=== PATIENT | female | born 1980 | race Caucasian/White ===

== ENCOUNTER 2018-12-28 22:32 | Inpatient (IN) ==
[2018-12-29] MEDS: PROTONIX IV SCH (01:14)
[2018-12-29] MEDS: DEMEROL IV PRN ×2 (01:14→06:38)
[2018-12-29] MEDS: SODIUM CHLORIDE 0.9% INJ SCH (01:14)
[2018-12-29 02:13] LABS: AGAP 18; ALB/GLOB RATIO 0.7; ALBUMIN 2.6 g/dL (3.5-5.0); ALKALINE PHOSPHATASE 138 U/L (32-104); BUN 10 mg/dL (8-22); CALCIUM 9.1 mg/dL (8.8-10.2); CHLORIDE 93 mmol/L (98-107); COSMO 261; CREATININE 0.7 mg/dL (0.5-0.9); ESTIMATED GFR > 60; GLUCOSE 119 mg/dL (70-104); GOT 31 U/L (10-30); GPT 17 U/L (10-36); MAGNESIUM 1.7 mg/dL (1.5-2.7); POTASSIUM 3.8 mmol/L (3.5-5.1); SODIUM 130 mmol/L (136-145); TCO2 19 mmol/L (25-35); TOTAL BILIRUBIN 0.56 mg/dL (0.20-1.00); TOTAL PROTEIN 6.3 g/dL (6.3-8.3)
[2018-12-29 02:24] LABS: INR 1.12; PROTIME 15.3 Seconds (11.0-16.0)
[2018-12-29 02:25] LABS: BASO# 0.02 X1000 (0.0-0.2); BASO% 0.1 % (0.0-0.8); EOS# 0.05 X1000 (0.0-0.7); EOS% 0.2 % (0.0-10.0); HEMATOCRIT 34.3 % (37.0-47.0); IMM GRAN# 0.12 X1000 (0.0-0.04); IMM GRAN% 0.5 % (0.0-0.5); LYMPH# 1.58 X1000 (1.2-3.4); LYMPH% 6.4 % (20.5-51.1); MCHC 32.1 g/dL (33-37); MCV 81.1 FL (81-99); MONO# 1.68 X1000 (0.11-0.59); MONO% 6.8 % (1.7-9.3); MPV 9.4 FL (7.4-10.4); NEUT# 21.34 X1000 (1.4-6.5); PLT 316 X1000 (130-400); RBC 4.23 XMIL (4.2-5.4); RDW 15.1 % (11.5-14.5); WBC 24.79 X1000 (4.8-10.8)
[2018-12-29 02:59] LABS: LYMPHS 7 % (21-51); MONO 6 % (1-9); SEGS 87 % (42-75)
[2018-12-29 03:38] LABS: BILIRUBIN URINE NEGATIVE (NEGATIVE); BLOOD URINE MODERATE (NEGATIVE); COLOR YELLOW; GLUCOSE URINE NEGATIVE (NEGATIVE); KETONE URINE 40 mg/dL (NEGATIVE); LEUKOCYTES URINE LARGE (NEGATIVE); NITRITE URINE NEGATIVE (NEGATIVE); PH URINE 6.5; PROTEIN URINE 30 mg/dL (NEGATIVE); SP GRAVITY URINE 1.025; TURBIDITY URINE HAZY (CLEAR); URINE SOURCE CLEAN CATCH; UROBILINOGEN URINE NORMAL (NORMAL)
[2018-12-29 03:40] LABS: UR EPITHELIAL CELLS <10 /HPF (<10); URINE BACTERIA NEGATIVE /HPF; URINE WBC TNTC /HPF (<10)
[2018-12-29] MEDS: ZOSYN 3.375 GM in NS 50 ML IV SCH ×4 (04:15→19:39)
[2018-12-29] MEDS: NS 1,000 ML IV SCH ×3 (04:15→20:26)
[2018-12-29] MEDS ORDERED: OFIRMEV 1000 MG/ISOTONIC SOLN 1,000 MG/100 ML BOTTLE IV ONE (04:55)
--- NOTE | 2018-12-29 06:36 | Diag Imaging Result Doc PS360 ---
CT ABD/PELVIS W/IV CONT ONLY - 12/29/2018 INDICATION: Buttock abscess,r/o perirectal abscess COMPARISON: None FINDINGS: There is a large subcutaneous rim-enhancing gas and fluid collection centered at the superficial tissue at the intragluteal crease mainly on the left side. This does not appear to extend above the pelvic diaphragm. In maximum dimension this measures 11 x 10 cm. The lung bases are clear and the heart size is normal. There is mild fatty change of the liver. There are a couple of nonobstructing stones in the upper pole of the right kidney measuring about 4 mm. No hydronephrosis or hydroureter. 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 There are peripelvic cysts of the lower pole of the right kidney. Urinary bladder, uterus, and rectum are normal. No bowel obstruction or inflammation. Bony structures are intact. IMPRESSION: 1. Large subcutaneous abscess at the inferior intergluteal crease. This does not extend above the pelvic diaphragm. 2. Nonobstructing right renal stones. 3. Mild fatty change of the liver. This exam was performed using automated exposure control, adjustment of mA or kV according to patient size, and/or use of iterative reconstruction technique Electronically signed by Hernan Glover 12/29/2018 6:35 AM
--- NOTE | 2018-12-29 07:30 | EKG Report ---
Test Performed on : 12/29/2018 01:40:20 AM Test Reason : Hypokalemia, Surgical Patient Blood Pressure : / mmHG Vent. Rate : 110 BPM Atrial Rate : 110 BPM P-R Int : 122 ms QRS Dur : 098 ms QT Int : 308 ms P-R-T Axes : 047 052 101 degrees QTc Int : 416 ms Sinus tachycardia. Lateral infarct (cited on or before 11-FEB-2018) Possible Inferior infarct , old Abnormal ECG When compared with ECG of 11-FEB-2018 08:59, Nonspecific T wave abnormality now evident in Inferior leads Nonspecific T wave abnormality now evident in Lateral leads Confirmed by Berenice LEVY, Manuel Fallon ([id number]) on 12/29/2018 1:39:23 PM
--- NOTE | 2018-12-29 07:44 | HISTORY AND PHYSICAL ---
PRIMARY CARE PROVIDER: Dr. Ric Butterfield. CHIEF COMPLAINT: Possible abscess. HISTORY OF PRESENT ILLNESS: Ms. Osullivan is a 38-year-old female who was transferred to our facility from [facility]. She states that for a few days now, she had been having low back, buttock type pain. She states that she did present to the urgent care in [place] and was diagnosed with lower back pain. They did prescribe her a muscle relaxer and an NSAID. The patient states the pain did continue. She states that approximately 1 to 1-1/2 days ago that she had development of an abscess on her left buttock. She states this has continued to worsen. She also reports that she has been having fever, body aches, chills and nausea. She is also reporting some urinary frequency and a headache. The patient states that she does have a history of migraines and it is not uncommon for her to have headaches and these are similar to her previous headaches. The patient also states that she has felt a pressure type pain like she may have a bowel movement although she will not. She has reported some hematochezia though she does have a history of hemorrhoids. At [facility], the patient was noted to have leukocytosis and according to their laboratory results, she did have a white blood cell count of 32,500. She was also noted on her chemistries to have a potassium of 2.8. Given her reported symptoms and examination findings of a large left buttock abscess, they did diagnose her with a perirectal abscess. They did give 1 dose of IV Ancef for antibiotic coverage. She did receive a 1 L of normal saline bolus and pain medication of Demerol and 1 gram of Tylenol p.o. The ER physician there, Dr. Claudio did speak with Dr. Cotto a surgeon at [facility] and Dr. Cotto has accept the patient. She was transferred to [facility] for admission. Upon my examination, the patient was resting in the inpatient bed. She was in no acute distress. She was alert and oriented x4. Should mention she is complaining of pain at this time in her left buttock area. Upon examination, the patient did have what appears to be a large left buttock abscess though she does not have any draining or area of fluctuance noted at this time. The area does have erythema and is warm to the touch. The patient did report a lot of tenderness upon palpation. Laboratory results here did reveal a white blood cell count of 24,790 though her potassium level was 3.8. Lactate was 1.1. Urinalysis did show moderate blood, large leukocytes and too numerous to count white blood cells. CT abdomen and pelvis with IV contrast did show a large left perianal and gluteal abscess. The patient has been placed in inpatient admission to the surgical floor. REVIEW OF SYSTEMS: A 14 point review of systems was conducted with the patient and all were negative except for pertinent positives mentioned in above HPI. PAST MEDICAL HISTORY: 1. Hypertension. 2. Thyroid disease. 3. Gastroesophageal reflux disease. 4. Anemia. PAST SURGICAL HISTORY: 1. x3. 2. Tubal ligation. 3. Laparoscopic supracervical hysterectomy with left salpingectomy. SOCIAL HISTORY: The patient denies any tobacco, alcohol or illicit drug use. FAMILY HISTORY: Positive for her mother having a history of hypertension. She did pass away secondary to a brain aneurysm. Her father has a history of heart disease. ALLERGIES: Patient has an allergy to codeine stating it causes her to have itching. HOME MEDICATIONS: 1. Lotensin 40 mg p.o. daily. 2. Coreg 12.5 mg p.o. b.i.d. 3. Cyclobenzaprine 10 mg p.o. p.r.n. for muscle spasms. 4. Hydrochlorothiazide 25 mg p.o. daily. 5. Motrin 800 mg p.o. q.8 hours p.r.n. 6. Prevacid 30 mg p.o. b.i.d. 7. Claritin 10 mg p.o. daily. 8. Meloxicam 15 mg p.o. daily. 9. Tapazole 5 mg p.o. daily. 10.Singulair 10 mg p.o. daily. 11.Centrum multivitamin 1 p.o. daily. DIAGNOSTIC DATA/LABORATORY RESULTS: White blood cell count is 24,790, hemoglobin 11, hematocrit 34.3, platelet count is 316,000. PT is 15.3, INR 1.12. Sodium 130, potassium 3.8, chloride 93, serum bicarb is 19. BUN 10, creatinine 0.8 with a glucose of 119. Calcium 9.1. Magnesium 1.7. Liver function tests were within normal limits except for AST 31 and alkaline phosphatase 138. Plasma lactate 1.1. TSH 0.48. Urinalysis obtained via clean catch was positive for protein, ketones, moderate blood, leukocytes and too numerous to count white blood cells though was negative for nitrites, glucose or bacteria. EKG showed sinus tachycardia at a rate of 110 with a QTc of 416. CT abdomen and pelvis with IV contrast does show a large left perianal and gluteal abscess. There were other non acute findings. Please see CT report for CT findings. PHYSICAL EXAMINATION: VITAL SIGNS: Temperature 98.8 degrees, heart rate 110, respirations 20, blood pressure is 125/69, oxygen saturation is 100% room air. GENERAL: Ms. Osullivan is a very pleasant 38-year-old female who was resting in the inpatient bed. She was in no acute distress. She was awake, alert and able to answer all questions appropriately. HEENT: Head is atraumatic, normocephalic. Pupils are equal, round and reactive to light, 3 mm bilaterally and brisk. Oral mucosa is moist. Oropharynx is clear. NECK: Supple. Trachea midline. CARDIOVASCULAR: Patient has normal S1, S2. No murmurs, gallops, rubs appreciated with a slightly tachycardic rate and a regular rhythm. PULMONARY: Patient has symmetrical chest expansion bilaterally. Lung sounds were clear to auscultation in bilateral full oliva. ABDOMEN: Soft. Does not appear to be distended though the patient does have a protuberant abdomen noted. It is nontender upon palpation. Bowel sounds are present in all 4 quadrants. EXTREMITIES: No cyanosis, clubbing or edema noted. Pulse, motor and sensory are intact in all extremities. Radial pulses and pedal pulses are 2+ bilaterally. GENITOURINARY: The patient does have a large left buttock abscess though there does not appear to be any area of drainage or fluctuance noted at this time. This area was very tender to touch or with palpation. There is erythema and warmth noted. INTEGUMENTARY: The patient's skin is pink, warm and dry. Please see above genitourinary exam for left buttock abscess description. NEUROLOGICAL: The patient is alert, oriented x4. She is able to move all 4 extremities. There does not appear to be any focal neurological deficits noted at this time. ASSESSMENT AND PLAN: 1. Large left perianal and gluteal abscess. For this, we have placed a consult with Dr. Cotto for possible surgical drainage. We will await his evaluation and further recommendations for management. Given this, we have placed her NPO until evaluated by Surgery. We will provide antibiotic coverage with Zosyn. Blood cultures have been obtained. She reported that Demerol did control her pain well. We will continue this at this time as well as provide general fluid hydration with normal saline at 100 mL per hour. The patient did previously receive a 1 L normal saline bolus in the ER at [facility]. We will continue to follow closely. 2. Leukocytosis. This is likely secondarily related to her perianal and gluteal abscess though the patient has been reporting urinary frequency and does have large leukocytes noted in her urinalysis. We will continue with the above mentioned antibiotic of Zosyn and blood cultures and urine culture. 3. Hypertension. We will continue her Coreg 12.5 mg p.o. b.i.d. 4. Thyroid disease. We will continue her Tapazole. 5. Gastroesophageal reflux disease. We have placed Protonix 40 mg IV q.24 hours. 6. DVT prophylaxis will be provided with SCDs. We will hold any anticoagulants given that she is likely a surgical patient. She has been placed on the medical floor telemetry. She will have vital signs q.4 hours. We will do strict intake and output. Further orders and recommendations pending hospital course, diagnostic studies and physician evaluation. Dictated by CARMENCITA Barnett for Rk Shi MD cc: Rk Shi MD
[2018-12-29] MEDS: CLARITIN PO SCH (08:25)
[2018-12-29] MEDS: SINGULAIR PO SCH (08:25)
[2018-12-29] MEDS: TAPAZOLE PO SCH (08:25)
[2018-12-29] MEDS ORDERED: DILAUDID IV ONE (08:39)
[2018-12-29] MEDS ORDERED: COREG PO SCH (09:00)
--- NOTE | 2018-12-29 10:22 | PROGRESS NOTE ---
DATE: 12/29/2018 INTERVAL HISTORY: Ms. Osullivan was admitted for sepsis due to left gluteal/ perianal abscess, hyponatremia, hypochloremia, low bicarbonate, from [facility]. She is about to go for incision and drainage by the surgical team. SUBJECTIVE: The patient is complaining of excruciating pain in the left perianal region . She states she just had a big urine output right after her CAT scan was taken. We discussed about her sepsis finding, antibiotic plan, and surgical plan. I answered all of her questions. Plan of care was discussed with the patient's who is the surrogate decision maker. OBJECTIVE: Vital Signs: Temperature 99.7 degrees, pulse 117 per minute, blood pressure 100/53, saturating 96% on room air. Physical Examination: General: The patient appears in [id number] distress because of pain. HEENT: Oral cavity has poor dentition and appears dry. Respiratory: Air entry bilaterally equal. No wheeze, rhonchi, or crackles. Cardiovascular: S1, S2. Tachycardic. No murmur, rub, or gallop. Abdomen: Obese, soft, nontender. No hepatosplenomegaly. Bowel sounds are active. Extremities: No lower extremity edema. Gluteal examination reveals warm, erythematous, indurated area affecting the left buttock starting from anal orifice and extending on the lower aspect of the left buttock. There is no opening or active drainage. Microbiology: Blood culture, urine culture, and lab. Report: CT scan finding has suggested gluteal abscess in the subcutaneous region. ASSESSMENT AND PLAN: 1. Sepsis due to left perianal/gluteal abscess. Continue intravenous fluid resuscitation. Give boluses as needed. Continue intravenous Zosyn. She does not have risk factors for methicillin-resistant Staphylococcus aureus. Follow up with blood culture results. Surgery has been consulted and patient is about to go for incision and drainage. Follow up final culture results and modify antibiotics accordingly. 2. Fever, leukocytosis, and tachycardia, likely in the setting of sepsis. Follow up cardiac and respiratory status closely. 3. Pyuria with history of increased frequency of urination. Follow up with final urine culture results. Continue Zosyn for now. 4. Thyroid disease. The patient could not provide detailed history about hypo versus hyperthyroidism. It is listed that she is taking methimazole. I will follow up with TSH and free T4. 5. History of essential hypertension. Continue to hold antihypertensive medication for now. The patient's antihypertensive medication was also started recently because of her high heart rate, as per the history given by the patient. 6. Hyponatremia, hypochloremia, and low bicarbonate, likely in the setting of sepsis. Continue intravenous fluids and follow up with BMP. Depending on her course, I will have Valdez catheter for close input and output monitoring. 7. Gastroesophageal reflux disease. Continue Protonix. 8. Deep venous thrombosis prophylaxis. Continue sequential compression devices. I will add enoxaparin after surgery. 9. Disposition. The patient remains inside the hospital for sepsis from a gluteal abscess. Plan of care was discussed with the patient and her at bedside. All of their questions have been answered. cc: Amrit Jansen MD MTDD
[2018-12-29] MEDS: TYLENOL PO PRN ×3 (10:44→23:09)
[2018-12-29] MEDS: DILAUDID IV PRN ×3 (11:10→17:09)
[2018-12-29] MEDS: ZOFRAN IV PRN ×2 (11:11→17:08)
[2018-12-29] MEDS ORDERED: LOVENOX SUBQ SCH (11:45)
[2018-12-29] MEDS ORDERED: DIPRIVAN 1% ONE (14:39)
[2018-12-29] MEDS ORDERED: XYLOCAINE-MPF 2% ONE (14:39)
[2018-12-29] MEDS ORDERED: VERSED ONE (14:39)
[2018-12-29] MEDS ORDERED: QUELICIN (DOSE) ONE (14:39)
[2018-12-29] MEDS ORDERED: FENTANYL ONE (14:39)
[2018-12-29] MEDS ORDERED: PEPCID ONE (15:03)
[2018-12-29] MEDS ORDERED: ZOFRAN ONE (15:06)
[2018-12-29] MEDS ORDERED: PHENERGAN ONE (16:23)
[2018-12-29] MEDS ORDERED: DEMEROL ONE (16:24)
--- NOTE | 2018-12-29 17:21 | OPERATIVE NOTE ---
PROCEDURE DATE: 12/29/2018 PREOPERATIVE DIAGNOSIS: Perirectal abscess. POSTOPERATIVE DIAGNOSIS: Perirectal abscess. PRINCIPAL PROCEDURE: Incision and drainage of a large left-sided perirectal abscess. SURGEON: Silva Cotto MD. ANESTHESIA: General. ESTIMATED BLOOD LOSS: 50 mL. DRAINS: None. INDICATIONS: Ms. Ruma Osullivan is a 38-year-old, overweight, white female who for the last 3 days has been having increasing swelling and pain left buttock where she could not even sit down. She presented to [facility] Emergency Department last night. She was transferred to [facility] for surgical treatment. FINDINGS: She had a large perirectal abscess left side of the rectum within the soft tissue. We drained it completely and packed it open with iodoform gauze. DESCRIPTION OF PROCEDURE: The patient was brought to the operating room, placed supine, received general anesthesia, was intubated, and then she was placed in the prone position. Her buttocks were prepped and draped within a sterile field. She had a large perirectal abscess involving the medial aspect of her left buttock. I made a transverse incision in the area of most fluctuance with a 15 blade scalpel and began draining this perirectal abscess. It at least 500-750 mL of pus within it. Cultures were taken. We removed all the purulence using suction and we took time to thoroughly irrigate out the abscess cavity. We then packed it open with 1 inch iodoform gauze, followed by dry dressings. She tolerated the procedure well with plans for her to go the recovery room and then be readmitted to the floor. cc: Silva Cotto MD
[2018-12-29] MEDS ORDERED: LEVOPHED 8 MG in D5 1/2 NS 250 ML IV SCH (18:00)
--- NOTE | 2018-12-29 18:11 | PROGRESS NOTE ---
DATE: 12/29/2018 ADDENDUM: I was informed that Ms. Osullivan blood pressure had dropped, and it was 60s over 30s. She kept on having repeated fever spikes, which was not improving. I went to bedside and evaluated the patient again. She is feeling very sleepy. She complains of some pain at the surgical site. Apparently, she underwent incision and drainage of her large perianal abscess with removal of about 500 mL of purulent fluid. She denies any chest pain or shortness of breath. I had ordered an additional L of bolus, but considering her critically low blood pressure I would transfer her to ICU for septic shock. Continue current antibiotic regimen, and we will start her on norepinephrine drip to maintain more than 65 mmHg of map. More than 30 minutes of critical care time was spent in taking care of this patient. Plan of care was discussed with her at length. I called lori'ts who was not at the bedside in the evening. However, his voice mail is not set up. I called patient's mother and it went to her voicmail. I have left a message to call us back so that we could update them about patient's ICU transfer. cc: Amrit Jansen MD MTDD
[2018-12-29] MEDS ORDERED: VANCOMYCIN IV PER PHARMACY MISC SCH (18:15)
[2018-12-29] MEDS ORDERED: VANCOMYCIN 2 GM in NS 500 ML IV SCH (20:00)
[2018-12-29] MEDS ORDERED: NS 500 ML IV ONE (20:12)
[2018-12-29] MEDS: MYLICON PO PRN (20:26)
[2018-12-30] MEDS: SODIUM CHLORIDE 0.9% INJ SCH (01:08)
[2018-12-30] MEDS: PROTONIX IV SCH (01:08)
[2018-12-30] MEDS: ZOSYN 3.375 GM in NS 50 ML IV SCH ×4 (02:59→20:17)
[2018-12-30 04:17] LABS: INR 1.23; PROTIME 16.5 Seconds (11.0-16.0)
[2018-12-30] MEDS: DILAUDID IV PRN (04:21)
[2018-12-30 04:25] LABS: ALB/GLOB RATIO 0.9; ALBUMIN 2.4 g/dL (3.5-5.0); CALCIUM 7.7 mg/dL (8.8-10.2); CREATININE 1.1 mg/dL (0.5-0.9); POTASSIUM 2.8 mmol/L (3.5-5.1); TOTAL BILIRUBIN 0.34 mg/dL (0.20-1.00); TOTAL PROTEIN 5.1 g/dL (6.3-8.3)
[2018-12-30 05:07] LABS: URINE SOURCE CATH
[2018-12-30 05:09] LABS: BILIRUBIN URINE NEGATIVE (NEGATIVE); BLOOD URINE SMALL (NEGATIVE); COLOR YELLOW; GLUCOSE URINE 70 mg/dL (NEGATIVE); KETONE URINE TRACE mg/dL (NEGATIVE); LEUKOCYTES URINE SMALL (NEGATIVE); NITRITE URINE NEGATIVE (NEGATIVE); PROTEIN URINE 70 mg/dL (NEGATIVE); SP GRAVITY URINE 1.022; TURBIDITY URINE HAZY (CLEAR); UROBILINOGEN URINE 3 mg/dL (NORMAL)
[2018-12-30 05:30] LABS: BASO# 0.02 X1000 (0.0-0.2); BASO% 0.1 % (0.0-0.8); EOS# 0.08 X1000 (0.0-0.7); EOS% 0.4 % (0.0-10.0); HEMOGLOBIN 8.7 g/dL (12.0-16.0); IMM GRAN# 0.09 X1000 (0.0-0.04); IMM GRAN% 0.5 % (0.0-0.5); LYMPH# 2.39 X1000 (1.2-3.4); LYMPH% 12.3 % (20.5-51.1); MCH 25.1 PG (27-31); MCV 83.6 FL (81-99); MONO# 1.66 X1000 (0.11-0.59); MONO% 8.5 % (1.7-9.3); MPV 9.7 FL (7.4-10.4); NEUT# 15.27 X1000 (1.4-6.5); NEUT% 78.2 % (42.2-75.2); PLT 299 X1000 (130-400); RBC 3.47 XMIL (4.2-5.4); RDW 15.5 % (11.5-14.5); WBC 19.51 X1000 (4.8-10.8)
[2018-12-30 05:53] LABS: UR EPITHELIAL CELLS <10 /HPF (<10); URINE BACTERIA NEGATIVE /HPF; URINE CASTS NONE SEEN; URINE CRYSTALS NONE SEEN; URINE RBC <10 /HPF (<10); URINE SMALL ROUND CELLS NONE SEEN; URINE WBC <10 /HPF (<10); URINE YEAST NONE SEEN
[2018-12-30] MEDS: NS 1,000 ML IV SCH (06:12)
--- NOTE | 2018-12-30 08:35 | Diag Imaging Result Doc PS360 ---
CHEST-PORTABLE - 12/30/2018 INDICATION: Abnormal chest x-ray COMPARISON: Earlier 12/30/2018 FINDINGS: There is clearly dextrocardia. The exact composition and reason is unclear. There is not enough detail from the abdomen CT to determine the situs of the heart. IMPRESSION: Dextrocardia with indeterminate situs. Recommend correlation with prior exams. A chest CT may be indicated. Electronically signed by Hernan Glover 12/30/2018 8:33 AM
--- NOTE | 2018-12-30 08:36 | Diag Imaging Result Doc PS360 ---
CHEST-1 VIEW - 12/30/2018 INDICATION: sepsis protocol COMPARISON: None FINDINGS: There is dextrocardia. No significant infiltrates throughout the lungs. There is some linear atelectasis midlungs bilaterally. IMPRESSION: Indeterminate dextrocardia. Bilateral linear atelectasis. Electronically signed by Hernan Glover 12/30/2018 8:34 AM
[2018-12-30] MEDS: ZYVOX 600 MG/D5W 600 MG/300 ML IVPB IV SCH ×2 (08:37→19:12)
[2018-12-30] MEDS: SINGULAIR PO SCH (08:46)
--- NOTE | 2018-12-30 08:48 | PROGRESS NOTE ---
DATE: 12/30/2018 SUBJECTIVE: As per the patient, she is feeling a little bit better today, but she is still on pressors. She has acute kidney injury, septic shock. Yesterday around 500 to 750 mL of pus had been drained from the perianal abscess. After that, the blood pressure started to drop to the 60s, and she was transferred to the intensive care unit for treatment. I will stop the vancomycin given to her acute kidney injury. I will continue with IV fluids, pressors, broad-spectrum antibiotics. Infectious Disease Department consulted. OBJECTIVE: Vital Signs: Temperature 98.3, pulse 20, blood pressure 109/53, oxygen saturation 95% on room air. HEENT: Head normocephalic. No trauma. PERRLA. Neck: Supple. No JVD. No masses. Central trachea. Chest: Clear to auscultation. No wheezing. No rales. Abdomen: Soft. Mild tenderness to palpation at the level of the periumbilical area and right flank. Positive bowel sounds. No signs of peritoneal irritation. Extremities: No edema. No clubbing. No cyanosis. Buttocks: Gluteal examination: This patient's gluteal area is covered by dressings. Neurological examination: Alert and oriented x3. No focal deficits. LABORATORY: WBC 19.5, hemoglobin 8.7, hematocrit 29.0, platelets 299. Sodium 137, potassium 2.8, chloride 103 bicarbonate 22. BUN 20, creatinine 1.1, glucose 113, calcium 7.7, albumin 2.4. ASSESSMENT AND PLAN: 1. Septic shock, due to left perianal abscess. I will continue with intravenous fluids, broad- spectrum antibiotics. I will stop the vancomycin due to her acute kidney injury, and I will put this patient on Zyvox. I will consult Infectious Disease Department. Continue with pressors as well. 2. Fever, leukocytosis, likely secondary to the infectious process/sepsis. Continue to monitor with telemetry. 3. Possible urinary tract infection. We will follow up with final urine culture, but for now we will continue with antibiotics. 4. Possible thyroid disease. Thyroid stimulating hormone is normal. She is not sure if she has a history of hypo or hyperthyroidism. 5. History of hypertension. No blood pressure medication for now due to her hypotension. 6. Hyponatremia. Resolved. 7. Hypokalemia. I will replace the potassium. 8. Acute kidney injury likely secondary to septic shock/hypotension. We will continue with intravenous fluids and pressors. Hopefully, this will get better. 9. Deep vein thrombosis prophylaxis. I will stop right now the Lovenox because her PT and PTT are elevated. I will ask for more lab work to rule out disseminated intravascular coagulation. 10. Possible disseminated intravascular coagulation. I will ask for more lab work to rule it out. PT, PTT slightly elevated. Once this is better, I will continue with subcutaneous heparin. 11. Disposition: We will continue with this patient in the intensive care unit. She is getting pressors, broad-spectrum antibiotics and intravenous fluids. She is in septic shock. Infectious Disease Department has been consulted. CRITICAL CARE TIME: 35 minutes. cc: Miguel Sun MD
[2018-12-30] MEDS: CLARITIN PO SCH (08:57)
[2018-12-30] MEDS: KLOR-CON PO SCH ×2 (08:57→20:17)
[2018-12-30] MEDS: TAPAZOLE PO SCH (09:35)
[2018-12-30] MEDS: MYLICON PO PRN ×3 (09:36→19:12)
--- NOTE | 2018-12-30 09:52 | INFECTIOUS DISEASE CONSULT REP ---
DATE: 12/30/2018 CONCLUSION: I was asked see the patient because of sepsis. The patient, I think, was septic because of her perirectal abscess but since it has been drained and since she has been started on antibiotics, her condition has improved quite a bit. Her urinalysis shows she has white cells but no bacteria and the white cells in the urine probably occurred from the urinary tract being near the perirectal abscess. RECOMMENDATIONS: I agree with treating the patient with Zosyn and Zyvox pending culture results. DISCUSSION: The patient developed a large perirectal abscess. She developed a septic-like condition. The abscess has been drained by Dr. Cotto. Since the drainage, the patient's condition has improved quite a bit. Her CBC shows the white count went from 24,790 to 19,510, hemoglobin 8.7, and platelet count 299,000. Creatinine increased a little bit to 1.1 and the GFR decreased a little bit to 56. Liver function studies are normal. Urine culture is negative. Blood cultures are pending. The abscess culture is pending also. The Gram stain from the abscess shows gram-positive cocci and gram-negative rods. GEEK SQUAD MANAGER HISTORY: The patient is a 3, para 3, AB 0. She delivered all of her children by section. She has had a hysterectomy. PREVIOUS HOSPITALIZATIONS AND OPERATIONS: She has had 3 sections and a hysterectomy. MEDICAL DISEASES: Positive for obesity, hypertension, hypothyroidism, and at one time, her cholesterol was elevated but she states it is not elevated now and she is not on medication for cholesterol. INFECTIOUS DISEASE HISTORY: Positive for urinary tract infection. FAMILY HISTORY: Positive for diabetes mellitus, hypertension, myocardial infarction, stroke, and cancer. SOCIAL HISTORY[place] . She has a cat and fish for pets. She is a homemaker. ALLERGIES: She is allergic to [place]. HABITS: She does not smoke cigarettes, drink alcoholic beverages, or abuse drugs. HOME MEDICATIONS: Include the following: Lotensin, Coreg, cyclobenzaprine, hydrochlorothiazide, Motrin, Prevacid, Claritin, meloxicam, Tapazole, montelukast, and multivitamins. PHYSICAL EXAMINATION: Vital Signs: Temperature is 97.6 degrees, pulse 92, respirations 19, blood pressure 115/61. General: This is an obese but otherwise healthy-appearing young female. She is in no acute distress. Head, Eyes, Ears, Nose, and Throat: She can hear my spoken words and see near objects. There is no drainage from the nose or the ears. Neck: No meningismus. Lungs: Clear to auscultation. Cardiovascular: Heart rate is regular. Abdomen: Soft and nontender. Neurologic: The patient is alert. She can move her extremities. There is no tremor. Her sensation is intact to touch. Her memory as regarding her medical history is intact. Thank you for the consult. cc: Clarence Duarte MD
[2018-12-30] MEDS: TYLENOL PO PRN ×2 (11:10→19:20)
[2018-12-30] MEDS ORDERED: BLISTEX MEDICATED BERRY LIP BALM TOP PRN (23:22)
[2018-12-30] MEDS ORDERED: NS 1,000 ML IV SCH (23:45)
[2018-12-31] MEDS: PROTONIX IV SCH (00:08)
[2018-12-31] MEDS: ZOSYN 3.375 GM in NS 50 ML IV SCH ×2 (01:43→07:56)
[2018-12-31] MEDS: TYLENOL PO PRN ×2 (01:44→21:49)
[2018-12-31 07:01] LABS: BASO# 0.02 X1000 (0.0-0.2); BASO% 0.2 % (0.0-0.8); EOS# 0.09 X1000 (0.0-0.7); EOS% 0.9 % (0.0-10.0); HEMATOCRIT 28.4 % (37.0-47.0); HEMOGLOBIN 8.6 g/dL (12.0-16.0); IMM GRAN# 0.04 X1000 (0.0-0.04); IMM GRAN% 0.4 % (0.0-0.5); LYMPH# 1.75 X1000 (1.2-3.4); LYMPH% 18.3 % (20.5-51.1); MCH 25.5 PG (27-31); MCHC 30.3 g/dL (33-37); MCV 84.3 FL (81-99); MONO# 0.83 X1000 (0.11-0.59); MONO% 8.7 % (1.7-9.3); NEUT# 6.83 X1000 (1.4-6.5); NEUT% 71.5 % (42.2-75.2); PLT 321 X1000 (130-400); RBC 3.37 XMIL (4.2-5.4); RDW 15.5 % (11.5-14.5); WBC 9.56 X1000 (4.8-10.8)
[2018-12-31 07:15] LABS: PTT 34.2 Seconds (22.3-41.8)
[2018-12-31 07:39] LABS: ALBUMIN 2.4 g/dL (3.5-5.0); CREATININE 2.2 mg/dL (0.5-0.9); INR 1.15; MAGNESIUM 2.1 mg/dL (1.5-2.7); PROTIME 15.6 Seconds (11.0-16.0); TOTAL BILIRUBIN 0.27 mg/dL (0.20-1.00); TOTAL PROTEIN 4.7 g/dL (6.3-8.3)
[2018-12-31] MEDS: 1/2 NS 1,000 ML IV SCH ×2 (07:55→19:30)
--- NOTE | 2018-12-31 08:22 | PROGRESS NOTE ---
DATE: 12/31/2018 SUBJECTIVE: As per the patient, she is feeling much better. She is no longer on pressors since yesterday. Blood pressure has been stable. White blood cells normalized, as well as her PT, PTT, INR. Her BUN increased a little bit compared with yesterday, but creatinine basically doubled the amount, from 1.1 to 2.2, but her urine output is good, documented 3.2 liters in 24 hours. She is tolerating p.o. and she is not having symptoms. I will continue with the IV fluids. I believe the kidney function is going to get better. Potassium level is normal today. OBJECTIVE: Vital Signs: Temperature 98.1 degrees, pulse 84, respiratory rate 22, blood pressure 122/58, oxygen saturation 97% on 2 liters of nasal cannula. HEENT: Head normocephalic. No trauma. PERRLA. Neck: Supple. No JVD. No masses. Central trachea. Chest: Clear to auscultation. No wheezing. No rales. Abdomen: Soft. Mild tenderness to palpation at the level of the periumbilical area. Positive bowel sounds. No signs of peritoneal irritation. Extremities: No edema. No clubbing. No cyanosis. Buttocks: The patient's gluteal area is covered with dressings. Neurological: The patient is alert and oriented x3. No focal deficits. LABORATORY DATA: WBC 9.5, hemoglobin 8.6, hematocrit 28.4, platelets 221,000. Sodium 146, potassium 4, chloride 101, bicarbonate 23, BUN 22, creatinine 2.2, glucose 95, calcium 8, AST 15, ALT 12, alkaline phosphatase 122, albumin 2.4. ASSESSMENT AND PLAN: 1. Septic shock due to perianal abscess. We will continue with intravenous fluids, broad- spectrum antibiotics, but we will avoid nephrotoxic medications. Infectious Disease Department on board. She is no longer on pressors. The septic shock resolved. Blood pressure has been more stable. 2. Fever, leukocytosis, likely secondary to the infectious process/sepsis, resolved. 3. Possible urinary tract infection. Urine culture did not show any bacteria. 4. Possible thyroid disease. The thyroid stimulating hormone is normal. For now, we will monitor. 5. Acute kidney injury, likely secondary to septic shock/hypotension. We will continue with intravenous fluids. She is no longer on pressors, but the blood pressure has been stable, actually the kidney numbers are getting worse. BUN increased a little bit and creatinine doubled from 1.1 to 2.2, but the urine output is excellent, 3.2 liters, so for now we will monitor. I do believe this is going to get better. 6. Deep vein thrombosis prophylaxis. I will put this patient back on anticoagulation. For now, we will do heparin subcutaneously twice a day. 7. Mild hypernatremia. We will monitor. She will drink more water. 8. Hypokalemia, resolved. Overall, this patient seems to be better. BUN and creatinine increased compared with yesterday, but the urine output is better as well. We will monitor for now. I do believe that is going to recover. I think she can be transferred to the floor. We have a positive wound culture that showed gram-negative rods. We will continue with the same management. Infectious Disease Department is on board. cc: Miguel Sun MD
[2018-12-31] MEDS: ZYVOX 600 MG/D5W 600 MG/300 ML IVPB IV SCH (08:29)
[2018-12-31] MEDS: SINGULAIR PO SCH (08:30)
[2018-12-31] MEDS: TAPAZOLE PO SCH (08:30)
[2018-12-31] MEDS: CLARITIN PO SCH (08:30)
--- NOTE | 2018-12-31 08:31 | PROGRESS NOTE ---
DATE: 12/31/2018 SUBJECTIVE: Ms. Ruma Osullivan is a 38-year-old white female, who is now postop day 2 from drainage of a large perirectal abscess. She had to be hospitalized in the ICU after surgery because of hypotension. She remains on IV antibiotics and clinically she has improved over the last 48 hours. I removed her packing from her open wound that drained her perirectal abscess this morning. She needs to be allowed to get in a shower or tub to keep that area clean at least daily. She needs dressing changes or attention to this area per our nurses at least twice daily. I have written those orders. This wound has to heal by secondary intention. After each bowel movement, she needs to be allowed to shower or get in a tub. cc: Silva Cotto MD
--- NOTE | 2018-12-31 11:39 | INFECTIOUS DISEASE PROGRESS NO ---
DATE: 12/31/2018 PRESENT ILLNESS: Ms. Osullivan is being treated for an Escherichia coli that is growing from a left-sided perirectal abscess. She has had incision and drainage of the abscess by Dr. Cotto. MEDICATIONS: Today is day 2 of Zosyn 3.375 g IV every 6 hours and Zyvox 600 mg IV every 12 hours. PHYSICAL EXAMINATION: Vital Signs: Temperature is 97.8 degrees, pulse rate 98 , respiratory rate 22, blood pressure 138/73, O2 saturation 99% on room air. General: This is a morbidly obese, middle-aged female. She is lying in bed, currently in no acute distress. HEENT : Atraumatic, normocephalic. Oral mucous membranes are pink and moist. Conjunctivae are pale. Neck: Supple. Trachea is midline. Cardiovascular: Heart rate and rhythm are regular. Normal sinus rhythm on the monitor. Radial and pedal pulses are palpable bilaterally. Abdomen: Soft , obese, and nontender. Bowel sounds are active. Integumentary: Incision noted to the medial aspect of her left buttock, which is currently open to air. There is some brownish-red drainage noted on the pad under her. Otherwise, the skin is warm and dry. Neurologic: She is awake , alert, and oriented, and moving around in the bed independently. LAB AND X-RAY: WBC 9.56, hemoglobin 8.6, platelet count 321,000, creatinine 2.2 , GFR 25, AST 15, ALT 12, alkaline phosphatase 122. Wound culture has grown an E. Coli. No imaging reports today. ASSESSMENT AND PLAN: Ms. Osullivan is being treated for a large perirectal abscess , which is growing an E. Coli. She has had an acute kidney injury and is receiving intravenous fluids. For now we will go ahead and discontinue Zyvox, and continue Zosyn at a renally modified dose of 2.25gm IV every 6 hours. Her leukocytosis has now resolved. The patient states she is feeling much better today, and is being transferred to the fourth floor, out of the intensive care unit at this point. These plans have been discussed with and recommended by Dr. Duarte. COMORBIDITIES: The comorbidities for Ms. Osullivan include morbid obesity and acute kidney injury. Dictated by CARMENCITA Styles for Clarence Duarte MD This chart was documented by, CARMENCITA Styles and accurately reflects the services performed, treatment plan and medical decisions as attested by the providers signature Clarence Duarte MD. cc: Clarence Duarte MD [facility]
[2018-12-31] MEDS: ZOSYN 2.25 GM in NS 50 ML IV SCH ×2 (15:23→21:32)
[2018-12-31] MEDS: DILAUDID IV PRN (21:32)
[2019-01-01] MEDS: ZOSYN 2.25 GM in NS 50 ML IV SCH ×4 (02:28→21:23)
[2019-01-01] MEDS: PROTONIX IV SCH (02:29)
[2019-01-01] MEDS: TYLENOL PO PRN (04:26)
[2019-01-01 06:35] LABS: BASO# 0.02 X1000 (0.0-0.2); BASO% 0.3 % (0.0-0.8); EOS# 0.14 X1000 (0.0-0.7); EOS% 2.1 % (0.0-10.0); HEMATOCRIT 26.2 % (37.0-47.0); HEMOGLOBIN 7.6 g/dL (12.0-16.0); LYMPH# 1.64 X1000 (1.2-3.4); LYMPH% 24.8 % (20.5-51.1); MCH 24.6 PG (27-31); MCV 84.8 FL (81-99); MONO# 0.67 X1000 (0.11-0.59); MONO% 10.1 % (1.7-9.3); MPV 9.8 FL (7.4-10.4); NEUT# 4.14 X1000 (1.4-6.5); NEUT% 62.7 % (42.2-75.2); PLT 335 X1000 (130-400); RBC 3.09 XMIL (4.2-5.4); RDW 15.5 % (11.5-14.5); WBC 6.61 X1000 (4.8-10.8)
[2019-01-01 06:54] LABS: ALB/GLOB RATIO 0.8; ALBUMIN 2.5 g/dL (3.5-5.0); CALCIUM 8.6 mg/dL (8.8-10.2); CREATININE 1.5 mg/dL (0.5-0.9); PHOSPHORUS 4.4 mg/dL (2.7-4.5); POTASSIUM 2.9 mmol/L (3.5-5.1); TOTAL BILIRUBIN 0.2 mg/dL (0.20-1.00); TOTAL PROTEIN 5.6 g/dL (6.3-8.3)
[2019-01-01] MEDS: 1/2 NS 1,000 ML IV SCH ×2 (08:04→15:14)
[2019-01-01] MEDS: TAPAZOLE PO SCH (10:04)
[2019-01-01] MEDS: CLARITIN PO SCH (10:04)
[2019-01-01] MEDS: SINGULAIR PO SCH (10:04)
[2019-01-01] MEDS ORDERED: KLOR-CON PO ONE (10:24)
--- NOTE | 2019-01-01 14:48 | PROGRESS NOTE ---
DATE: 01/01/2019 SUBJECTIVE: This patient is feeling better. She has been having low-grade fever, especially yesterday. Wound culture showed Escherichia coli that is sensitive to the treatment. We will continue with the same management. OBJECTIVE: Vital Signs: Temperature 98.2 degrees, pulse 94, respiratory rate 20, blood pressure 148/89, oxygen saturation 100% on room air. HEENT: Head normocephalic. No trauma. PERRLA. Neck: Supple. No JVD. No masses. Central trachea. Chest: Clear to auscultation. No wheezing. No rales. Abdomen: Soft. Mild tenderness to palpation at the level of the periumbilical area. Positive bowel sounds. No signs of peritoneal irritation. Extremities: No edema. No clubbing. No cyanosis. Inguinal area, gluteal area is covered with a dressing. Neurological examination: The patient is alert and oriented x3. No focal deficits. LABORATORY: WBC 6.6, hemoglobin 7.6, hematocrit 26.2, platelets 335. Sodium 142, potassium 2.9, chloride 107, bicarbonate 22. BUN 18, creatinine is 1.5, glucose 96, calcium 8.6. AST 11. ALT 13. alkaline phosphatase 108, albumin 2.5. ASSESSMENT AND PLAN: 1. Septic shock due to perianal abscess. I will continue with intravenous antibiotics, broad spectrum. We will avoid nephrotoxic medication. Infectious Disease Department on board. She is no longer on pressors, resolved. 2. Fever/leukocytosis, likely secondary to infectious process of sepsis. This is getting better. She has been having low-grade fever, especially yesterday. Leukocyte count improved, 6.6 today. 3. Urinary tract infection. Urine culture did not show any bacteria. 4. Possible thyroid disease. The thyroid stimulating hormone is normal. For now, we will monitor. 5. Acute kidney injury likely secondary to septic shock/hypotension. We will continue with intravenous fluids. She is not on pressors. Blood pressure has been stable. The creatinine decreased from 2.2 to 1.5. Urine output stable. 6. Deep vein thrombosis prophylaxis. I have placed this patient back on heparin twice a day due to her kidney dysfunction. 7. Mild hypernatremia, resolved. 8. Hypokalemia. I will replace the potassium. cc: Miguel Sun MD
[2019-01-01] MEDS: HEPARIN SUBQ SCH (21:23)
[2019-01-02] MEDS: SODIUM CHLORIDE 0.9% INJ SCH (01:12)
[2019-01-02] MEDS: TYLENOL PO PRN ×3 (01:12→20:42)
[2019-01-02] MEDS: PROTONIX IV SCH (01:12)
[2019-01-02] MEDS: 1/2 NS 1,000 ML IV SCH (01:13)
[2019-01-02] MEDS ORDERED: TESSALON PO PRN (03:40)
[2019-01-02] MEDS: ZOSYN 2.25 GM in NS 50 ML IV SCH ×4 (04:40→20:42)
[2019-01-02 06:45] LABS: BASO# 0.02 X1000 (0.0-0.2); BASO% 0.3 % (0.0-0.8); EOS# 0.12 X1000 (0.0-0.7); HEMOGLOBIN 8.6 g/dL (12.0-16.0); LYMPH# 1.76 X1000 (1.2-3.4); LYMPH% 28.7 % (20.5-51.1); MCH 24.9 PG (27-31); MCHC 29.7 g/dL (33-37); MCV 84.1 FL (81-99); MONO# 0.61 X1000 (0.11-0.59); MPV 9.6 FL (7.4-10.4); NEUT# 3.62 X1000 (1.4-6.5); PLT 369 X1000 (130-400); RBC 3.45 XMIL (4.2-5.4); RDW 15.3 % (11.5-14.5); WBC 6.13 X1000 (4.8-10.8)
[2019-01-02 06:47] LABS: ALB/GLOB RATIO 0.9; ALBUMIN 2.8 g/dL (3.5-5.0); CALCIUM 8.9 mg/dL (8.8-10.2); CREATININE 1.3 mg/dL (0.5-0.9); MAGNESIUM 1.8 mg/dL (1.5-2.7); TOTAL BILIRUBIN 0.23 mg/dL (0.20-1.00)
[2019-01-02] MEDS: CLARITIN PO SCH (10:05)
[2019-01-02] MEDS: TAPAZOLE PO SCH (10:05)
[2019-01-02] MEDS: HEPARIN SUBQ SCH ×2 (10:06→20:42)
[2019-01-02] MEDS: SINGULAIR PO SCH (10:06)
[2019-01-02] MEDS: COREG PO SCH ×2 (11:58→20:42)
[2019-01-02] MEDS: KLOR-CON PO SCH ×2 (11:59→20:41)
--- NOTE | 2019-01-02 12:40 | PROGRESS NOTE ---
DATE: 01/02/2019 SUBJECTIVE: This patient is feeling better. Her kidney function is getting better as well. No fever. No chills. Blood pressure is slightly elevated and I will put this patient back on carvedilol. I will hold for now her benazepril and hydrochlorothiazide due to her acute kidney injury. OBJECTIVE: Vital Signs: Temperature 98 degrees, pulse 81, respiratory rate 12, blood pressure 149/85, oxygen saturation 99 on room air. HEENT: Head normocephalic. No trauma. PERRLA. Neck: Supple. No JVD. No masses. Central trachea. Chest: Clear to auscultation. No wheezing. No rales. Abdomen: Soft, nontender, nondistended. No hepatosplenomegaly. Positive bowel sounds. Extremities: No edema. No clubbing. No cyanosis. Inguinal area/gluteal area is covered with a dressing. Neurological: Alert and oriented x3. No focal deficits. LABORATORY: WBC 6.1, hemoglobin 8.6, hematocrit 29, platelets 369,000. Sodium 142, potassium 3, chloride 106, bicarbonate 21, BUN 13, creatinine 1.3, glucose 99, calcium 8.9, albumin 2.8. ASSESSMENT AND PLAN: 1. Septic shock due to perianal abscess. Continue with IV antibiotics, broad spectrum. We will continue avoiding nephrotoxic medication. Infectious Disease Department on board. She is no longer on pressors. She is on the medical floor. Continue with IV fluids. 2. Fevers/leukocytosis, secondary to the infectious process and sepsis, resolved. 3. Urinary tract infection. Apparently she has been having multiple urinary tract infections in the past, at least 4 last year. Urine culture has been negative during this hospitalization. 4. Acute kidney injury secondary to septic shock/hypotension. This is getting better. BUN and creatinine are trending down. Urine output stable. 5. Deep vein thrombosis prophylaxis. Continue with heparin twice a day. 6. Mild hypernatremia, resolved. 7. Hypokalemia. I will replace the potassium today again. cc: Miguel Sun MD
[2019-01-02] MEDS: ZOFRAN IV PRN (20:41)
[2019-01-03] MEDS: 1/2 NS 1,000 ML IV SCH ×3 (00:32→15:35)
[2019-01-03] MEDS: ZOSYN 2.25 GM in NS 50 ML IV SCH ×3 (02:24→15:36)
[2019-01-03] MEDS: PROTONIX IV SCH (02:25)
[2019-01-03 06:07] LABS: BASO# 0.02 X1000 (0.0-0.2); BASO% 0.3 % (0.0-0.8); EOS# 0.24 X1000 (0.0-0.7); EOS% 3.1 % (0.0-10.0); HEMATOCRIT 28.4 % (37.0-47.0); HEMOGLOBIN 8.7 g/dL (12.0-16.0); IMM GRAN# 0.02 X1000 (0.0-0.04); IMM GRAN% 0.3 % (0.0-0.5); LYMPH# 1.92 X1000 (1.2-3.4); LYMPH% 24.5 % (20.5-51.1); MCH 25.4 PG (27-31); MCHC 30.6 g/dL (33-37); MCV 82.8 FL (81-99); MONO# 0.58 X1000 (0.11-0.59); MONO% 7.4 % (1.7-9.3); MPV 9.3 FL (7.4-10.4); NEUT# 5.06 X1000 (1.4-6.5); NEUT% 64.4 % (42.2-75.2); PLT 403 X1000 (130-400); RBC 3.43 XMIL (4.2-5.4); WBC 7.84 X1000 (4.8-10.8)
[2019-01-03 06:44] LABS: ALB/GLOB RATIO 1.1; ALBUMIN 3.2 g/dL (3.5-5.0); CALCIUM 8.9 mg/dL (8.8-10.2); CREATININE 1.2 mg/dL (0.5-0.9); POTASSIUM 3.7 mmol/L (3.5-5.1); TOTAL BILIRUBIN 0.18 mg/dL (0.20-1.00); TOTAL PROTEIN 6.2 g/dL (6.3-8.3)
[2019-01-03] MEDS: SINGULAIR PO SCH (10:12)
[2019-01-03] MEDS: TAPAZOLE PO SCH (10:12)
[2019-01-03] MEDS: CLARITIN PO SCH (10:12)
[2019-01-03] MEDS: HEPARIN SUBQ SCH ×2 (10:12→21:34)
[2019-01-03] MEDS: COREG PO SCH ×2 (10:12→21:34)
[2019-01-03] MEDS: FLAGYL PO SCH (16:51)
[2019-01-03] MEDS: LEVAQUIN PO SCH (16:51)
--- NOTE | 2019-01-03 18:04 | PROGRESS NOTE ---
DATE: 01/03/2019 SUBJECTIVE: Patient is feeling better. No major complaints. OBJECTIVE: Vital Signs: Blood pressure is 143/84, heart rate 76, respiratory rate 16, temperature 98.6, 98% on room air. Cardiovascular: Regular rate and rhythm. Pulmonary: Bilateral breath sounds. Clear to auscultation. Gastrointestinal: Soft, nontender, nondistended. Bowel sounds are positive. LAB DATA: Her white count is down to 7, actually been stable for several days. Hemoglobin and hematocrit 8 and 28, platelets 403,000. Basic looked okay. Creatinine down to 1.2. PROBLEM LIST: 1. Perianal abscess with resolved septic shock. ID has switched her to p.o. Levaquin and Flagyl. She did have a culture for Prevotella oralis, presumably that is anaerobic and sensitive to Flagyl. E coli is sensitive to Levaquin based on cultures from the . 2. UTI, but no active culture this admission. 3. Acute kidney injury that is resolving with hydration. She seems to be stable. 4. Hypokalemia has also improved. DISPOSITION: I think she is still very weak, though, but I think she is probably close to going home. Plan is to discharge at the discretion of Dr. Cotto, Surgery and Dr. Duarte, ID. Hopefully in the next couple days. cc: Arthur Lorenzo MD
--- NOTE | 2019-01-03 18:43 | INFECTIOUS DISEASE PROGRESS NO ---
DATE: 01/03/2019 PRESENT ILLNESS: Ms. Osullivan has an Escherichia coli and Prevotella oralis growing from a perirectal abscess. She has had an incision and drainage by Dr. Cotto. She is complaining of vaginal candidiasis as well. MEDICATIONS: Today is day 5 of Zosyn, which she has had at 2.25 g every 6 hours IV due to her acute kidney injury. At this point, her kidney function is improving with a GFR of 50. PHYSICAL EXAMINATION: Vital Signs: Temperature 98.8, pulse rate 70 respiratory rate 18, blood pressure 156/100, O2 saturation 99% on room air. General: This is a morbidly obese, chronically ill-appearing, middle-aged female. She is lying in the bed, currently in no acute distress. HEENT: Atraumatic, normocephalic. Oral mucous membranes are pink and moist. Conjunctivae are pale. Neck: Supple. Trachea is midline. Cardiovascular: Heart rate and rhythm are regular. Normal sinus rhythm on the monitor. Pedal and radial pulses are +2 bilaterally. Respiratory: Lung sounds are clear to auscultation. Abdomen: Soft, obese, and nontender. Bowel sounds are active. Integumentary: There is an incision to the medial aspect of her left buttock, which is open to air, with a small amount from brownish red drainage noted on the pad. Integumentary: Skin is warm and dry. Neurologic: She is awake, alert, and oriented. She is able to ambulate without assistance. No focal deficits. LABORATORY AND X-RAY: Today, her white count is 7.84, hemoglobin 8.7, platelet count 403,000. Creatinine is 1.2. GFR is 50. Total bilirubin is 0.18, AST 14, ALT 20, alkaline phosphatase 108. Her rectal wound has grown an E coli and a Prevotella oralis. Urine and blood cultures have shown no growth. No imaging reports today. ASSESSMENT AND PLAN: Ms. Osullivan is being treated for a perirectal abscess, which has been drained by Dr. Cotto. She also had an acute kidney injury, which seems to be resolving. I have talked to her about drinking plenty of fluids. We will change the Zosyn to oral Levaquin 500mg daily and Flagyl 500mg every 8 hours. She is complaining of vaginal burning, so we will treat her for a presumed candidiasis with clotrimazole cream every HS. She has had multiple UTI' s recently, although there is not a current bacteria growing. We will check a renal ultrasound and get a bladder scan for postvoid residual once her Valdez catheter comes out. These plans have been discussed with and recommended by Dr. uDarte. COMORBIDITIES: Morbid obesity and acute kidney injury. Dictated by CARMENCITA Styles for Clarence Duarte MD This chart was documented by, CARMENCITA Styles and accurately reflects the services performed, treatment plan and medical decisions as attested by the providers signature Clarence Duarte MD. cc: Clarence Duarte MD [facility]ri[facility]
[2019-01-03] MEDS ORDERED: ZOSYN 3.375 GM in NS 50 ML IV SCH (21:00)
[2019-01-03] MEDS ORDERED: NON-FORMULARY BULK MED VAG SCH (21:00)
[2019-01-04] MEDS: 1/2 NS 1,000 ML IV SCH ×2 (00:54→04:49)
[2019-01-04] MEDS: PROTONIX IV SCH (04:47)
[2019-01-04] MEDS: FLAGYL PO SCH ×2 (04:47→09:33)
[2019-01-04] MEDS: SODIUM CHLORIDE 0.9% INJ SCH (04:48)
[2019-01-04 06:05] LABS: BASO# 0.01 X1000 (0.0-0.2); BASO% 0.2 % (0.0-0.8); EOS# 0.14 X1000 (0.0-0.7); EOS% 2.3 % (0.0-10.0); HEMATOCRIT 26.3 % (37.0-47.0); HEMOGLOBIN 7.9 g/dL (12.0-16.0); LYMPH# 1.69 X1000 (1.2-3.4); LYMPH% 27.4 % (20.5-51.1); MCH 25.3 PG (27-31); MCV 84.3 FL (81-99); MONO% 8.1 % (1.7-9.3); MPV 9.6 FL (7.4-10.4); NEUT# 3.83 X1000 (1.4-6.5); PLT 333 X1000 (130-400); RBC 3.12 XMIL (4.2-5.4); RDW 14.9 % (11.5-14.5); WBC 6.17 X1000 (4.8-10.8)
[2019-01-04 06:47] LABS: AGAP 15; BUN 8 mg/dL (8-22); CALCIUM 8.6 mg/dL (8.8-10.2); CHLORIDE 106 mmol/L (98-107); COSMO 281; ESTIMATED GFR > 60; GLUCOSE 95 mg/dL (70-104); POTASSIUM 3.3 mmol/L (3.5-5.1); SODIUM 142 mmol/L (136-145); TCO2 21 mmol/L (25-35)
--- NOTE | 2019-01-04 07:09 | PROGRESS NOTE ---
DATE: 01/04/2019 SUBJECTIVE: Ms. Ruma Osullivan underwent drainage of a large perirectal abscess and suffered sepsis perioperatively and also renal dysfunction. Her creatinine has improved from 2.2 to 1.0. Her white blood cell count is now normal. She remains anemic with a hematocrit of 26%. OBJECTIVE: Her incision in the perirectal area appears to be clean, open, and the wound will have to heal by secondary intention. Clinically, Ms. Osullivan looks much improved. As far as a surgical standpoint, she can be discharged home with followup in our outpatient offices in 2 weeks. I have discussed wound care with her, and she knows to call me with any increasing perirectal swelling or pain. cc: Silva Cotto MD
[2019-01-04] MEDS: LEVAQUIN PO SCH (09:32)
[2019-01-04] MEDS: HEPARIN SUBQ SCH (09:32)
[2019-01-04] MEDS: SINGULAIR PO SCH (09:32)
[2019-01-04] MEDS: TAPAZOLE PO SCH (09:32)
[2019-01-04] MEDS: CLARITIN PO SCH (09:33)
[2019-01-04] MEDS: COREG PO SCH (09:33)
[2019-01-04] MEDS ORDERED: KLOR-CON PO ONE (11:00)
--- NOTE | 2019-01-04 12:03 | Diag Imaging Result Doc PS360 ---
US RENAL 2 (RETROPER) COMPLETE - 01/04/2019 INDICATION: repeat UTI's TECHNIQUE: COMPARISON: CT from 12/29/2018 FINDINGS: There are some small right renal cysts measuring 1.3 and 1.8 cm. No hydronephrosis. No mass or stone. Renal sizes are normal. The right kidney measures 16.1 x 5.7 x 5.6 cm. The left kidney measures 14.1 x 6.3 x 7 cm. IMPRESSION: Small right renal cysts. Electronically signed by Hernan Glover 01/04/2019 12:01 PM
[2019-01-04 12:59] VITALS: BP 175/70
--- NOTE | 2019-01-04 21:07 | DISCHARGE SUMMARY ---
ADMISSION DATE: 12/28/2018 DISCHARGE DATE: 01/04/2019 DISCHARGE DIAGNOSES: 1. Septic shock due to perianal abscess. 2. Perianal abscess. 3. Fevers/leukocytosis, resolved. 4. Urinary tract infection, has been ruled out. 5. Acute kidney injury secondary to septic shock, hypotension. 6. Mild hypernatremia, resolved. 7. Hypokalemia, resolved. 8. Hypertension. HOSPITAL COURSE: A 38-year-old female with who was transferred to our facility from [facility]. Apparently, a few days before admission she had been having low back pain and buttock-type pain. She was admitted here on 12/28/2018. As per the patient, she presented to the urgent care in [place] and was diagnosed with lower back pain. She received some muscle relaxer and NSAIDs. The patient stated the pain did continue and took 1 or 1-1/2 before admission. She had development of an abscess on her left buttock, has been getting worse, associated with fever, body aches, chills and nausea. She also has been presented with some urinary frequency and headache. She does have a history of migraines. The patient also states that she felt a pressure-type pain like she may have a bowel movement, although she was not, no hematochezia, but she has a history of hemorrhoids. At [facility], the patient was noted to have a leukocytosis, and according to their laboratory results the white blood cell was around 32,500, low-potassium, and they reported a perirectal abscess. She received one dose of antibiotics, 1 L of fluid, pain medication. Surgery Department was contacted and accepted the patient and she was transferred to [facility] for admission. When we evaluated this patient in the emergency department she was resting in the bed. Not in acute distress. She was oriented and having pain in her left buttock area. The patient did have that appears to be a large abscess, though she does not have any draining or area of fluctuance noted at the moment of admission. The area does have erythema and is warm to touch. It is tender. Also, we repeated laboratory that shows a leukocytosis of 24,790, potassium was better at 3.8, lactate level was 1.1. CT abdomen and pelvis with IV contrast showed a large left perianal and gluteal abscess. This patient has been placed for admission. She went to the OR on 12/29/2018 where they did an incision and drainage of a large sized perirectal abscess. It looks like at least 500/750 mL of pus was drained. They cleaned the area really well and she was transferred to the ICU because this patient started having low blood pressure and she needed some pressors. This patient was having septic shock due to the left perianal abscess. Also, she started having acute kidney injury due to the hypotension, but the patient was taken off pressors because the blood pressure improved, the kidney function is getting better on a daily basis and actually today is really close to her baseline with an estimated GFR of more than 60. Surgery Department evaluated this patient again and they state that this patient can be discharged home with antibiotics and follow up with Dr. Cotto in 2 weeks. He already discussed with the patient the way that she needs to take care of her wound, and she will call him for any problem with that, in case of increasing perirectal swelling or pain. I also instructed the patient to come to the emergency department for any kind of problem related or not to this wound like dizziness, fever. I told her to be hydrated. Even though his kidney function is close to her baseline, I will hold some of her medications that she was taking at home, including hydrochlorothiazide and ERASMO inhibitor. Infectious Disease Department also evaluated this patient and she will be discharged home. They will evaluate her again in one week. Her blood pressure has been a little bit elevated and I will start this patient on amlodipine, I gave her a prescription for twice a day. I talked to her with the , I told them to start taking this once a day and if the blood pressure is still high take it twice a day. They seemed to understand and they repeated that just to make sure that we were on the same page. Patient in stable medical condition, tolerating p.o. and ambulating. OBJECTIVE: Vital Signs: Temperature 98.4, pulse 67, respiratory rate 20, blood pressure 175/70, oxygen saturation 98% on room air. HEENT: Head normocephalic. No trauma. PERRLA. Neck: Supple. No JVD. No masses. Central trachea. Chest: Clear to auscultation. No wheezing, no rales. Abdomen: Soft, nontender, nondistended. No hepatosplenomegaly. Extremities: No edema, no clubbing, no cyanosis. Inguinal Area: Her left buttock is covered with a new dressing. Neurologic: Alert and oriented x 3. No focal deficits. LABORATORY: WBC 6.1, hemoglobin 7.9, hematocrit 26.3, platelets 333,000. Sodium 142, potassium 3.3, chloride 106, bicarbonate 21, BUN 8, creatinine 1, glucose 8.6. DISCHARGE MEDICATIONS: 1. Centrum 1 tablet p.o. daily. 2. Methimazole 5 mg p.o. daily. 3. Loratadine 10 mg p.o. daily. 4. Lansoprazole 30 mg p.o. b.i.d. 5. Montelukast 10 mg p.o. daily. 6. Coreg 12.5 mg p.o. b.i.d. 7. Cyclobenzaprine 10 mg p.o. as needed. 8. Simethicone 80 mg p.o. p.c. plus h.s. as needed for gas. 9. Flagyl 500 mg p.o. q.8 hours. 10. Levofloxacin 500 mg p.o. daily. 11. Tessalon 100 mg p.o. t.i.d. as needed. 12. Amlodipine 5 mg p.o. once a day. She may increase the dose to twice a day if the blood pressure is still elevated. 13. Acetaminophen 650 mg p.o. q.6 hours as needed. TIME SPENT: Time discharging this patient 35 minutes. cc: Miguel Sun MD MTDD
== END 2019-01-04 15:49 | disposition home or self-care (01) | DRG 853 ==
LOC: SUATTDRO 22:32 → DIRADM 22:32 → 3N 12-29 00:04 → ICU 12-29 19:18 → 4N 12-31 10:15
PROVIDERS: ATTEND Internal Medicine
CPT/HCPCS: 71010; 71045; 74177; 76770; 80048; 80053; 81001; 82550; 83605; 83735; 84100; 84443; 84484; 85025; 85384; 85610; 85730; 87040; 87045; 87046; 87070; 87075; 87076; 87077; 87088; 87186; 87205; 87324; 87449; 89055; 93005; 93010; 94761; A9270; C9113; J0330; J1170; J1644; J2020; J2175; J2250; J2405; J2543; J2550; J3010; J3370; J7030; J7040; Q9967; S0028; S0164

== ENCOUNTER 2019-09-07 10:52 | Inpatient (IN) ==
[2019-09-07 11:29] LABS: BASO# 0.02 X1000 (0.0-0.2); BASO% 0.1 % (0.0-0.8); EOS# 0.04 X1000 (0.0-0.7); EOS% 0.2 % (0.0-10.0); HEMATOCRIT 40.4 % (37.0-47.0); HEMOGLOBIN 12.8 g/dL (12.0-16.0); IMM GRAN# 0.05 X1000 (0.0-0.04); IMM GRAN% 0.3 % (0.0-0.5); LYMPH# 1.91 X1000 (1.2-3.4); LYMPH% 10.5 % (20.5-51.1); MCH 26.2 PG (27-31); MCHC 31.7 g/dL (33-37); MCV 82.6 FL (81-99); MONO# 1.51 X1000 (0.11-0.59); MONO% 8.3 % (1.7-9.3); MPV 9.7 FL (7.4-10.4); NEUT% 80.6 % (42.2-75.2); PLT 393 X1000 (130-400); RBC 4.89 XMIL (4.2-5.4); RDW 14.7 % (11.5-14.5); WBC 18.13 X1000 (4.8-10.8)
[2019-09-07 11:49] LABS: AGAP 14; ALB/GLOB RATIO 0.9; ALBUMIN 3.8 g/dL (3.5-5.0); ALKALINE PHOSPHATASE 176 U/L (32-104); BUN 6 mg/dL (8-22); CALCIUM 9.7 mg/dL (8.8-10.2); CHLORIDE 101 mmol/L (98-107); COSMO 275; CREATININE 0.6 mg/dL (0.5-0.9); ESTIMATED GFR > 60; GLUCOSE 125 mg/dL (70-104); GOT 13 U/L (10-30); GPT 19 U/L (10-36); POTASSIUM 3.4 mmol/L (3.5-5.1); SODIUM 138 mmol/L (136-145); TCO2 23 mmol/L (25-35); TOTAL BILIRUBIN 0.58 mg/dL (0.20-1.00); TOTAL PROTEIN 7.9 g/dL (6.3-8.3)
[2019-09-07] MEDS ORDERED: ZOSYN 3.375 GM in NS 50 ML IV ONE (11:55)
--- NOTE | 2019-09-07 12:17 | PROVIDER DOCUMENTATION ---
This chart was entered by Shauna Gage Scribe, acting as scribe for Sanchez Alcantar MD. HPI-Rash/Wound/ReCheck - General Chief Complaint: Abscess Stated Complaint: ABCESS Time Seen by Provider: 09/07/19 11:01 Source: patient, family Allergies/Adverse Reactions: Allergies Allergy/AdvReac Type Severity Reaction Status Date / Time hydrocodone [From Orinda] Allergy ITCHING Verified 09/07/19 11:03 levocetirizine [From Xyzal] Allergy Unknown Verified 09/07/19 11:03 levothyroxine sodium Allergy Unknown Verified 09/07/19 11:03 [From Synthroid] red dye Allergy HEADACHE Verified 09/07/19 11:03 Home Medications: Home Medication List Medication Instructions Recorded Confirmed Last Taken Type Lansoprazole [Prevacid] 30 mg PO BID 02/11/18 09/07/19 04/03/19 21:00 History 30 mg Loratadine [Claritin] 10 mg PO DAILY 02/11/18 09/07/19 04/04/19 08:00 History 10 mg Methimazole [Tapazole] 5 mg PO DAILY 02/11/18 09/07/19 04/04/19 08:00 History 5 mf Carvedilol [Coreg] 12.5 mg PO BID 12/29/18 09/07/19 04/04/19 21:00 History 12.5 mg Acetaminophen [Tylenol] 650 mg PO Q6H PRN PRN tablet 01/04/19 09/07/19 Unknown Rx Amlodipine [Norvasc] 5 mg PO BID #60 tab 01/04/19 09/07/19 04/04/19 21:00 Rx 5 mg Simethicone Chew [Mylicon] 80 mg PO PC + HS PRN #20 tab 01/04/19 04/06/19 Unknown Rx Metronidazole [Flagyl] 500 mg PO BID 04/06/19 04/06/19 04/05/19 08:00 History 500 mg Pnv Cmb#95/Ferrous Fumarate/FA 1 ea PO DAILY 04/06/19 04/06/19 04/05/19 08:00 History [ Multivitamins Tablet] 1 Amoxicillin/Potassium Clav 1,000 mg PO BID 09/07/19 09/07/19 Unknown History [Amox-Clav ER 1,000-62.5 mg Tab] - History of Present Illness-Dermatology Nature of Presenting Problem: 39 yowf presents to the ed with a perirectal abscess to rt medial. pt sts saw dr gage yesterday and was placed on abx but the pain has worsened so she came to ed. pt has hx of same complaint in dec and dr gage done I/D. pt on exam is nontoxic in appearance and is pleasant. Location: reports: other (perirectal) Quality: reports: painful Severity: reports: moderate Onset/Duration: reports: 3 days ago Timing: reports: still present Context/Associated Symptoms: reports: abscess Locality of [place]urance: Home Similar Symptoms Previously?: Yes Recently seen or treated by another doctor?: Yes (dr gage) Review of Systems - Adult - REVIEW OF SYSTEMS - ADULT Constitutional: denies: chills, fever Eyes: reports: no symptoms reported Ears, Nose, Mouth & Throat: reports: no symptoms reported Cardiovascular: denies: chest pain, syncope Respiratory: reports: no symptoms reported Gastrointestinal: denies: abdominal pain, diarrhea, nausea, vomiting Genitourinary: reports: no symptoms reported Musculoskeletal: denies: back pain, neck pain Integumentary: reports: see HPI, skin sores/ulcer Neurological: reports: no symptoms reported Psychiatric: reports: no symptoms reported Endocrine: reports: no symptoms reported Hematologic/Lymphatic: reports: no symptoms reported Allergic/Immunologic: reports: no symptoms reported All Other Systems: Reviewed and Negative Past History - Adult - PAST MEDICAL HISTORY-ADULT Review of Records: reports: Old Records Reviewed, Nursing Assessment Review, Medications Reviewed, Social history reviewed & non-contributory. Major Childhood Illnesses: reports: denies history Cardiovascular: reports: denies history Respiratory: reports: denies history Gastrointestinal: reports: GERD Obstetrical/Gynecological: reports: denies history Genitourinary: reports: denies history Musculoskeletal: reports: denies history Hand Dominance: Right Handed Neurological: reports: denies history Psychiatric: reports: denies history Endocrine/Immune: reports: denies history Other Conditions: reports: denies history - PRIOR SURGERIES/PROCEDURES Surgical/Procedure History: reports: hysterectomy, BTL, , other (abscess I/D) - IMMUNIZATION STATUS Childhood Immunizations: See Nurse Assessment Flu Vaccine: See Nurse Assessment - FAMILY HISTORY Family History: reviewed, not pertinent - SOCIAL HISTORY Smoking: denies Substance Use: denies Living Situation: family Physical Exam-General - PHYSICAL EXAM-ADULT Initial Vital Signs Reviewed: Yes - CONSTITUTIONAL General Appearance: appears well, alert, no apparent distress, obese - EYES Eyes: PERRL/EOMI, pink conjunctivae - HEAD, EARS, NOSE, MOUTH & THROAT HENMT: normocephalic/atraumatic, moist mucous membranes, normal ENT inspection - NECK Neck: non-tender, full range of motion, supple, normal inspection - RESPIRATORY Respiratory: chest non-tender, lungs clear, normal breath sounds - CARDIOVASCULAR Cardiovascular: normal peripheral pulses, tachycardia (119) - CHEST (BREASTS) Chest/Breast: deferred - GASTROINTESTINAL (ABDOMEN) Abdominal Exam: normal bowel sounds, non tender, soft - GENITOURINARY Female Genitalia/Pelvic Exam: deferred Rectal Exam: deferred Hemoccult Exam: deferred - LYMPHATIC Lymphatic: no adenopathy - MUSCULOSKELETAL Back Exam: normal inspection, no CVA tenderness, no vertebral tenderness Extremity: normal range of motion, non-tender, normal gait, normal inspection - SKIN Integumentary: swelling (same), tenderness (perirectal rt side), warm (same), other (rt perirectal abscess to medial rt side) - NEUROLOGIC Neurologic: grossly normal - PSYCHIATRIC Psych/Mental Status: normal mood/affect, normal thought content, normal thought process, oriented x 3 Progress - PLAN OF CARE/RESULTS Progress/Plan/Lab Results: Vital Signs - 8 hr 09/07/19 10:55 Temperature 97.8 F Pulse Rate 119 H Respiratory Rate 18 Blood Pressure 166/104 O2 Sat by Pulse Oximetry 96 09/07/19 12:11 Gram Stain - Final Buttock - Not Otherwise Specified 09/07/19 11:17 Group A Strep Rapid Antigen - Final Throat Laboratory Results - last 24 hr 09/07/19 09/07/19 09/07/19 11:17 11:17 12:37 WBC 18.13 H RBC 4.89 Hgb 12.8 Hct 40.4 MCV 82.6 MCH 26.2 L MCHC 31.7 L RDW Std Deviation 14.7 H Plt Count 393 MPV 9.7 Immature Gran % (Auto) 0.3 Neut % (Auto) 80.6 H Lymph % (Auto) 10.5 L [place] % (Auto) 8.3 Eos % (Auto) 0.2 Baso % (Auto) 0.1 Immature Gran # (Auto) 0.05 H Neut # (Auto) 14.60 H Lymph # (Auto) 1.91 [place] # (Auto) 1.51 H Eos # (Auto) 0.04 Baso # (Auto) 0.02 Sodium 138 Potassium 3.4 L Chloride 101 Carbon Dioxide 23 L Anion Gap 14 BUN 6 L Creatinine 0.6 Estimated GFR/1.73 m2 > 60 BUN/Creatinine Ratio 10 Glucose 125 H Estimat Average Glucose Hemoglobin A1c Calculated Osmolality 275 Calcium 9.7 Total Bilirubin 0.58 AST 13 ALT 19 Alkaline Phosphatase 176 H Total Protein 7.9 Albumin 3.8 Globulin 4.1 Albumin/Globulin Ratio 0.9 Plasma Lactate Urine Source CLEAN CATCH Urine Color YELLOW Urine Turbidity HAZY Urine pH 6.5 Ur Specific Weed 1.016 Urine Protein 200 A Ur Glucose (Stick) NEGATIVE Ur Ketones (Stick) 40 A Urine Blood MODERATE A Urine Nitrite NEGATIVE Urine Bilirubin NEGATIVE Urobilinogen Dipstick NORMAL Urine Leukocytes NEGATIVE Urine WBC (Auto) <10 Urine RBC (Auto) 20-40 A U Epithel Cells (Auto) >10 A Urine Bacteria (Auto) NEGATIVE 09/07/19 09/07/19 12:41 12:41 WBC RBC Hgb Hct MCV MCH MCHC RDW Std Deviation Plt Count MPV Immature Gran % (Auto) Neut % (Auto) Lymph % (Auto) [place] % (Auto) Eos % (Auto) Baso % (Auto) Immature Gran # (Auto) Neut # (Auto) Lymph # (Auto) [place] # (Auto) Eos # (Auto) Baso # (Auto) Sodium Potassium Chloride Carbon Dioxide Anion Gap BUN Creatinine Estimated GFR/1.73 m2 BUN/Creatinine Ratio Glucose Estimat Average Glucose 108 Hemoglobin A1c 5.4 Calculated Osmolality Calcium Total Bilirubin AST ALT Alkaline Phosphatase Total Protein Albumin Globulin Albumin/Globulin Ratio Plasma Lactate 1.6 Urine Source Urine Color Urine Turbidity Urine pH Ur Specific Weed Urine Protein Ur Glucose (Stick) Ur Ketones (Stick) Urine Blood Urine Nitrite Urine Bilirubin Urobilinogen Dipstick Urine Leukocytes Urine WBC (Auto) Urine RBC (Auto) U Epithel Cells (Auto) Urine Bacteria (Auto) Orders Category Date Time Status [facility] Routine AdmDCTranf 09/07/19 12:53 Active Activity - Up Ad Krista ORDERED Care 09/07/19 12:53 Active Nursing- MD Consult Request ROUTINE Care 09/07/19 12:53 Active Physician/Provider Consults Routine Cons 09/07/19 12:53 Ordered Regular Diet Diet 09/07/19 12:[address] PELVIS W/CONTRAST [CT] Stat Exams 09/07/19 11:55 Completed A1C HGB W EST AVG GLUCOSE [CHEM] Stat Lab 09/07/19 12:41 Completed BLOOD CULTURE [BLDCUL] Stat Lab 09/07/19 12:11 Results CBC WITH ELECTRONIC DIFF [HEME] Stat Lab 09/07/19 11:17 Completed CMP [COMPREHENSIVE METABOLIC PANEL] [CHEM] Stat Lab 09/07/19 11:17 Completed DIRECT STREP Stat Lab 09/07/19 11:17 Completed FOLATE Stat Lab 09/07/19 12:41 Received FREE T4 Stat Lab 09/07/19 12:41 Received LACTATE, PLASMA [CHEM] Stat Lab 09/07/19 12:41 Completed TSH Stat Lab 09/07/19 12:41 Received URINALYSIS W/POSS RFLX CULT [URINALYSIS] Routine Lab 09/07/19 12:37 Completed VITAMIN B12 Stat Lab 09/07/19 12:41 Received WOUND CULTURE INC GRAM STAIN [RM] Routine Lab 09/07/19 12:11 Results 0.9% Sodium Chloride Inj [Ns] 1,000 ml Med 09/07/19 13:00 Active IV 85 mls/hr Acetaminophen [Tylenol] Med 09/07/19 12:45 Active 1,000 mg PO Q4H PRN PRN Acetaminophen [Tylenol] Med 09/07/19 12:53 Active 650 mg PO Q6H PRN PRN Amlodipine [Norvasc] Med 09/07/19 21:00 Active 5 mg PO BID Carvedilol [Coreg] Med 09/07/19 21:00 Active 12.5 mg PO BID Enoxaparin [Lovenox] Med 09/08/19 09:00 Active 40 mg SUBQ Q24H Hydrocodone/APAP 7.5 mg/325 mg [Orinda-7.5] Med 09/07/19 12:53 Active See Dose Instructions PO Q4H PRN PRN Loratadine [Claritin] Med 09/08/19 09:00 Active 10 mg PO DAILY Omeprazole [Prilosec] Med 09/07/19 21:00 Active 20 mg PO BID Ondansetron [Zofran] Med 09/07/19 12:53 Active 4 mg IV Q4H PRN PRN Pharmacy Order [Vancomycin IV Per Pharmacy] Med 09/07/19 13:00 Ordered 1 each MISC DIRECTED Piperacillin/Tazobactam [Zosyn] 3.375 gm Med 09/07/19 11:55 Discontinued 0.9% Sodium Chloride Inj [Ns] 50 ml IV NOW Piperacillin/Tazobactam [Zosyn] 3.375 gm Med 09/07/19 18:00 Active 0.9% Sodium Chloride Inj [Ns] 50 ml IV Q6H Transfer/Admit Order [TRANSFER] Routine Transfer 09/07/19 12:48 Ordered Result Diagrams: 09/07/19 11:17 09/07/19 11:17 - CT/MRI 1 CT Study: Pelvis Impression: See EMR Report (CT PELVIS W/CONTRAST - 09/07/2019 INDICATION: perirectal abscess COMPARISON: 04/05/2019 FINDINGS: There are bilateral perirectal buttock abscesses. This measures 4.7 x 4.2 cm on the right, and 2 x 2 cm on the left. These demonstrate some thin rim enhancement. These are extremely superficial. Internal soft tissues are normal. Urinary bladder, uterus, and rectum are normal. Bones are intact and well mineralized. IMPRESSION: Bilateral superficial subcutaneous perirectal buttock abscesses. This exam was performed using automated exposure control, adjustment of mA or kV according to patient size, and/or use of iterative reconstruction technique Electronically signed by Hernan Glover 09/07/2019 1:25 PM 09/07/19 1325 Interpreting Physician: Hernan Glover MD Dictated Date/Time: 09/07/19 1324 cc: Sanchez Alcantar MD; Madhav Gage MD) - CONSULTS/PCP/HOSPITALIST Notification #1 *Consult/PCP/Hospitalist*: dr joao barnes Time Discussed: 11:54 (wants pt admitted to hosp) Reason/Comments: phone consult #2 Consult: hospitalist dr mcdowell Time Discussed: 12:05 (spoke with fabiola) Consult Disposition: Admit Departure - Departure Date of Disposition Decision: 09/07/19 Time of Disposition Decision: 12:06 DIAGNOSIS: Perirectal abscess Disposition: ADMITTED INPATIENT 09 Certified Medical Emergency: Emergent Condition: Fair Referrals and Follow-Ups: Madhav Gage MD [Primary Care Provider] - - Critical Care Note This patient required my direct & personal management of CC.: No Attestation - Physician/ KARLA Attestation Patient care was provided by Advanced Practice Provider:: No The physician spent face to face time with patient:: Yes Advanced Practice Provider documentation review:: Supervising physician onsite and consulted in the evaluation and care of this patient. The physician did have a face to face encounter with the patient. This chart was documented by the indicated scribe, (Shauna Gage Scribe) and accurately reflects the services I performed and decisions made by me, Sanchez Alcantar MD, as attested by the provider's signature.
[2019-09-07 12:49] LABS: URINE SOURCE CLEAN CATCH
[2019-09-07 12:53] LABS: BILIRUBIN URINE NEGATIVE (NEGATIVE); BLOOD URINE MODERATE (NEGATIVE); COLOR YELLOW; GLUCOSE URINE NEGATIVE (NEGATIVE); KETONE URINE 40 mg/dL (NEGATIVE); LEUKOCYTES URINE NEGATIVE (NEGATIVE); NITRITE URINE NEGATIVE (NEGATIVE); PH URINE 6.5; PROTEIN URINE 200 mg/dL (NEGATIVE); SP GRAVITY URINE 1.016; TURBIDITY URINE HAZY (CLEAR); UROBILINOGEN URINE NORMAL (NORMAL)
[2019-09-07] MEDS ORDERED: NORCO-7.5 PO PRN (12:53)
[2019-09-07] MEDS ORDERED: TYLENOL PO PRN (12:53)
--- NOTE | 2019-09-07 12:54 | HISTORY AND PHYSICAL ---
HISTORY OF PRESENT ILLNESS: She is a patient of Dr. Ric Butterfield. She is followed by Dr. Cotto. This is a 39-year-old with a past medical history of a perirectal abscess, had sepsis back in November, and was treated for nonhealing wound. Given antibiotics and had surgery for, I think, drainage and debridement. She returns with more swelling and pain. There appears to be return possibly of a perirectal abscess. Her course last time was complicated by bacteremia and possible sepsis. OTHER PAST MEDICAL HISTORY: Obesity, hypertension, hypothyroidism. SURGICAL HISTORY: Had incision and drainage for perirectal abscess and section x3, subsequent hysterectomy. SOCIAL HISTORY: No tobacco, alcohol, or drugs. FAMILY HISTORY: I think diabetes runs in the family as her father, I believe, of a brain aneurysm. REVIEW OF SYSTEMS: In general, no weight gain or loss. No fever or chills. HEENT: Unremarkable. No change in visual or hearing acuity. Respiratory: No increased work of breathing or dyspnea. Cardiovascular: No chest pain or tachy palpitations. GI/: Unremarkable. Musculoskeletal/Neurologic: No new complaints or focal changes. Endocrinologic/Hemologic: No significant history. PHYSICAL EXAMINATION: VITAL SIGNS: Temperature 97.8 degrees, pulse 119, respirations 18, blood pressure 166/104. HEENT: Pupils are equal round. LUNGS: Clear in all lung oliva. CARDIOVASCULAR EXAMINATION: Regular rhythm and rate without murmur or S3. ABDOMEN: Soft. SKIN: Warm and dry. Height 5 feet 4 inches. ASSESSMENT AND PLAN: 1. She has tenderness on the right perirectal side and she had seen Dr. Cotto yesterday so plan is to put her in, give her antibiotics. Surgery will follow. She is not allergic to anything but hydrocodone, levetiracetam, and I think levothyroxine, and there is something she put on there as red dye, so we will put her on, I think, probably vancomycin and Zosyn would be a good combination 3.375 g intravenous every 6 hours and vancomycin, load her with 1 g, have pharmacy dose it. Her white count is a little high. Electrolytes unremarkable. 2. We are going to check her T4 and TSH. She says she cannot take Synthroid so she has not been taking that medication, so we will see what her T4, TSH are, and B12 and folate. 3. Hypertension. Continue her Norvasc 5 mg twice a day. 4. History of gastroesophageal reflux. We will continue Prevacid. Actually, I think we will put her on Nexium 40 mg twice a day while she is here. 5. She is on Tapazole so I am not sure if she has hyperthyroidism, so we will just check her T4 and TSH, and see where we are. cc: Luis Singh MD
[2019-09-07 12:55] LABS: UR EPITHELIAL CELLS >10 /HPF (<10); URINE BACTERIA NEGATIVE /HPF; URINE RBC 20-40 /HPF (<10); URINE WBC <10 /HPF (<10)
[2019-09-07] MEDS ORDERED: VANCOMYCIN IV PER PHARMACY MISC SCH (13:00)
[2019-09-07] MEDS: TYLENOL PO PRN ×2 (13:15→20:48)
[2019-09-07 13:23] LABS: HEMOGLOBIN A1C 5.4 % (4.8-6.0)
--- NOTE | 2019-09-07 13:28 | Diag Imaging Result Doc PS360 ---
CT PELVIS W/CONTRAST - 09/07/2019 INDICATION: perirectal abscess COMPARISON: 04/05/2019 FINDINGS: There are bilateral perirectal buttock abscesses. This measures 4.7 x 4.2 cm on the right, and 2 x 2 cm on the left. These demonstrate some thin rim enhancement. These are extremely superficial. Internal soft tissues are normal. Urinary bladder, uterus, and rectum are normal. Bones are intact and well mineralized. IMPRESSION: Bilateral superficial subcutaneous perirectal buttock abscesses. This exam was performed using automated exposure control, adjustment of mA or kV according to patient size, and/or use of iterative reconstruction technique Electronically signed by Hernan Glover 09/07/2019 1:25 PM
[2019-09-07 13:57] LABS: FREE T4 1.07 ng/dL (0.93-1.70); TSH 1.87 uIUmL (0.27-4.20)
[2019-09-07] MEDS ORDERED: VANCOMYCIN 2,250 MG in NS 500 ML IV ONE (15:00)
[2019-09-07] MEDS: NS 1,000 ML IV SCH (16:44)
--- NOTE | 2019-09-07 20:14 | CONSULTATION ---
DATE OF CONSULTATION: 09/07/2019 REASON FOR CONSULTATION: We are asked to see Ms. Osullivan by our hospitalist, Dr. Luis Singh, because of recurrent perirectal abscess. HISTORY OF PRESENT ILLNESS: Ms. Ruma Osullivan is a 39-year-old white female who has had an anal fistula treated on the left side of her anus, and still has a seton in place, several months ago. Over the last 24 to 48 hours, she has had increasing right-sided perirectal pain. Presented to the emergency department and a CT of her pelvis suggests perirectal abscess involving the right side and left side. She was admitted by our hospitalist, and we were asked to see her for this perirectal abscess. She did eat a regular diet while in the emergency department. She does not have a history of Crohn's disease. PAST MEDICAL HISTORY: 1. She underwent I and D of a perirectal abscess and anal fistula in December. 2. She has had a hysterectomy, bilateral tubal ligation, . 3. Gastroesophageal reflux disease. MEDICATIONS: 1. Prevacid. 2. Claritin. 3. Tapazole. 4. Coreg. 5. Tylenol. 6. Norvasc. 7. Mylicon. 8. Flagyl. 9. vitamins. ALLERGIES: She is allergic to [place], Xyzal, Synthroid, red dye. FAMILY HISTORY: Reviewed and noncontributory. REVIEW OF SYSTEMS: A 14 point review of systems was performed and was essentially negative except for what is listed in the History of Present Illness. PHYSICAL EXAMINATION: General: Ms. Ruma Osullivan is an overweight, young white female, pleasant, in no acute distress. Vital Signs: Her heart rate is 119, blood pressure 166/104, O2 saturation 96%, and she was afebrile. HEENT: She has no jaundice. No oral lesions. No cervical or supraclavicular lymphadenopathy. Heart: Regular rate. Lungs: Clear to auscultation and percussion bilaterally. Breasts: Without obvious palpable mass. Abdomen: Soft and nontender without palpable mass. No costovertebral tenderness. Rectal: She has a seton in place, left anterior aspect of her rectum. She has pain, redness, and some swelling involving the right perirectal area, consistent with perirectal abscess. Extremities: She does have palpable peripheral pulses. No peripheral edema. Neurologic: She is alert and oriented x3 and appropriate. LABORATORY DATA: Her white blood cell count was 18, hematocrit 40. Electrolytes were within normal limits. Liver function tests within normal limits. A CT of her pelvis was performed which documents an abscess in right perirectal area and also an abscess in left side of the rectum. IMPRESSION: Perirectal abscess. PLAN: Incision and drainage of perirectal abscess in surgery with removal of the seton. She has eaten just recently and we will have to delay this until tomorrow. She will receive intravenous antibiotics in the meantime. cc: Silva Cotto MD
[2019-09-07] MEDS: COREG PO SCH (20:49)
[2019-09-07] MEDS: NORVASC PO SCH (20:49)
[2019-09-07] MEDS: ZOSYN 3.375 GM in NS 50 ML IV SCH (20:49)
[2019-09-07] MEDS: PRILOSEC PO SCH (20:50)
[2019-09-08] MEDS: NS 1,000 ML IV SCH ×3 (02:41→17:32)
[2019-09-08] MEDS: TYLENOL PO PRN (03:07)
[2019-09-08] MEDS: VANCOMYCIN 1,750 MG in NS 250 ML IV SCH ×2 (03:07→15:55)
[2019-09-08] MEDS: ZOSYN 3.375 GM in NS 50 ML IV SCH ×4 (03:07→21:21)
[2019-09-08 06:57] LABS: BASO# 0.03 X1000 (0.0-0.2); BASO% 0.2 % (0.0-0.8); EOS# 0.04 X1000 (0.0-0.7); EOS% 0.3 % (0.0-10.0); HEMATOCRIT 36.3 % (37.0-47.0); HEMOGLOBIN 11.2 g/dL (12.0-16.0); IMM GRAN# 0.03 X1000 (0.0-0.04); IMM GRAN% 0.2 % (0.0-0.5); LYMPH# 2.12 X1000 (1.2-3.4); LYMPH% 13.7 % (20.5-51.1); MCH 25.9 PG (27-31); MCHC 30.9 g/dL (33-37); MPV 9.9 FL (7.4-10.4); NEUT% 76.6 % (42.2-75.2); PLT 336 X1000 (130-400); RBC 4.32 XMIL (4.2-5.4); RDW 14.6 % (11.5-14.5); WBC 15.52 X1000 (4.8-10.8)
[2019-09-08 06:58] LABS: INR 1.19; PROTIME 15.3 Seconds (11.0-16.0)
[2019-09-08 06:59] LABS: PTT 38.4 Seconds (22.3-41.8)
[2019-09-08 07:20] LABS: AGAP 14; ALB/GLOB RATIO 0.9; ALBUMIN 3.2 g/dL (3.5-5.0); ALKALINE PHOSPHATASE 145 U/L (32-104); BUN 8 mg/dL (8-22); CALCIUM 8.6 mg/dL (8.8-10.2); CHLORIDE 105 mmol/L (98-107); COSMO 283; CREATININE 0.6 mg/dL (0.5-0.9); ESTIMATED GFR > 60; GLUCOSE 121 mg/dL (70-104); GOT 8 U/L (10-30); GPT 16 U/L (10-36); MAGNESIUM 1.9 mg/dL (1.5-2.7); SODIUM 142 mmol/L (136-145); TCO2 23 mmol/L (25-35); TOTAL BILIRUBIN 0.69 mg/dL (0.20-1.00); TOTAL PROTEIN 6.7 g/dL (6.3-8.3)
[2019-09-08] MEDS ORDERED: VERSED ONE (07:44)
[2019-09-08] MEDS ORDERED: FENTANYL ONE (07:44)
[2019-09-08] MEDS ORDERED: DIPRIVAN 1% ONE (07:45)
[2019-09-08] MEDS ORDERED: SENSORCAINE 0.25%/EPI 1:200,000 ONE (08:01)
[2019-09-08] MEDS ORDERED: NUPERCAINAL ONE (08:01)
[2019-09-08] MEDS: CLARITIN PO SCH (08:50)
[2019-09-08] MEDS: PRILOSEC PO SCH ×2 (09:00→21:22)
[2019-09-08] MEDS: NORVASC PO SCH ×3 (09:00→21:22)
[2019-09-08] MEDS: LOVENOX SUBQ SCH (09:00)
[2019-09-08] MEDS: COREG PO SCH ×2 (09:00→21:22)
--- NOTE | 2019-09-08 09:05 | PROGRESS NOTE ---
DATE: 09/08/2019 SUBJECTIVE: Ms. Osullivan is planning to go to surgery this morning. She had a pretty good night. She feels better. OBJECTIVE: Temperature 98.7 degrees, pulse 92, respirations 18, and blood pressure 148/74. Pupils are equal and round.Lungs: Clear in all lung oliva. Cardiovascular: Regular rhythm and rate without murmur or S3. Abdomen: Soft. Skin: Warm and dry. ASSESSMENT AND PLAN: 1. Perirectal abscess. Incision and drainage of perirectal abscess and surgery with removal of seton and that is for this morning. We will continue present antibiotics. 2. We checked her thyroid function, and it looks good so we will leave her thyroid alone for right now as far as supplement. Apparently, she is allergic to hydrocodone so we will figure something else out for pain medication. We will stop her hydrocodone. 3. Blood pressure appears well controlled. cc: Luis Singh MD
[2019-09-08] MEDS ORDERED: ZOFRAN ONE (10:12)
[2019-09-08] MEDS ORDERED: DECADRON ONE (10:13)
[2019-09-08] MEDS ORDERED: PHENERGAN ONE (10:13)
[2019-09-08] MEDS: DILAUDID ONE ×2 (10:28→10:36)
[2019-09-08] MEDS ORDERED: DECADRON IV ONE (10:45)
[2019-09-08] MEDS ORDERED: PHENERGAN INJ ONE (10:45)
[2019-09-08] MEDS ORDERED: ZOFRAN IV ONE (10:45)
--- NOTE | 2019-09-08 11:38 | OPERATIVE NOTE ---
PROCEDURE DATE: 09/07/2019 PREOPERATIVE DIAGNOSES: 1. Anal fistula. 2. Recurrent perirectal abscess. POSTOPERATIVE DIAGNOSES: 1. Anal fistula. 2. Recurrent perirectal abscess. PRINCIPAL PROCEDURE: Incision and drainage of perirectal abscess. SURGEON: Silva Cotto M.D. ANESTHESIA: General. ESTIMATED BLOOD LOSS: 50 mL. DRAINS: None. INDICATIONS: Ruma Osullivan is a 39-year-old, overweight, white female, who had developed an anal fistula, left side of the anus at about 7 o'clock anteriorly. We treated this with an incision and drainage of perirectal abscess and seton placement. This was done in December. She still had her seton in place, but this time she has developed not only recurrent infection at the anal fistula and left side of anus, but also right side of anus. FINDINGS: She had pus involving the soft tissue left side of anus, which we think originated from her original anal fistula, but she also had pus involving the right side of her anus, and we were thinking possibly a horseshoe fistula, but I could not demonstrate that during this perirectal abscess. We had to make incisions both on the left and right side of the anus to drain all of the infection. These were radial oriented incisions. We made a total of 4 incisions. DESCRIPTION OF PROCEDURE: The patient was brought to the operating room, received general anesthesia, was intubated, then was placed in the prone position. Her buttocks were taped apart, and her perianal area was prepped and draped within the sterile field. Initially, I removed the seton from the anal fistula, 7 o'clock position, left side of the anus anteriorly. The seton still was deep to at least the internal anal sphincter. She had a perirectal abscess involving the left side, and I made a radial incision further up or in the mid anus, radially oriented, with a 15 blade scalpel to drain this perirectal abscess. I used a curette to scrape out the anal fistula tract. Also, I used the cautery. I did not cut the anal sphincter muscle, but did remove the seton. I had to make two radial incisions on the right side of the anus also to drain a right- sided perirectal abscess. I could not demonstrate that these two abscesses, the left and right perirectal abscesses, communicated with each other. I was concerned about possible horseshoe fistula. I made sure that all of the purulence was drained. I thoroughly irrigated out the abscess cavities both on the left and right side, and then I packed these wounds open with iodoform gauze. Dressings were applied. She will go to the recovery room, and then be readmitted to the floor. cc: Silva Cotto MD
[2019-09-08] MEDS: DILAUDID IV PRN ×2 (14:35→19:01)
[2019-09-08] MEDS: PERIDEX MT SCH (21:22)
[2019-09-09] MEDS: DILAUDID IV PRN ×4 (00:05→20:06)
[2019-09-09] MEDS: NS 1,000 ML IV SCH ×2 (01:39→03:31)
[2019-09-09] MEDS: VANCOMYCIN 1,750 MG in NS 250 ML IV SCH ×2 (03:30→16:31)
[2019-09-09] MEDS: ZOSYN 3.375 GM in NS 50 ML IV SCH ×4 (03:30→20:05)
[2019-09-09 06:29] LABS: BASO# 0.01 X1000 (0.0-0.2); BASO% 0.1 % (0.0-0.8); EOS# 0.01 X1000 (0.0-0.7); EOS% 0.1 % (0.0-10.0); HEMATOCRIT 31.7 % (37.0-47.0); HEMOGLOBIN 9.8 g/dL (12.0-16.0); IMM GRAN# 0.04 X1000 (0.0-0.04); IMM GRAN% 0.3 % (0.0-0.5); LYMPH# 2.15 X1000 (1.2-3.4); LYMPH% 17.4 % (20.5-51.1); MCH 26.1 PG (27-31); MCHC 30.9 g/dL (33-37); MCV 84.5 FL (81-99); MONO% 8.1 % (1.7-9.3); MPV 9.8 FL (7.4-10.4); NEUT# 9.14 X1000 (1.4-6.5); PLT 306 X1000 (130-400); RBC 3.75 XMIL (4.2-5.4); RDW 14.1 % (11.5-14.5); WBC 12.35 X1000 (4.8-10.8)
[2019-09-09 07:10] LABS: BUN 6 mg/dL (8-22); CALCIUM 8.3 mg/dL (8.8-10.2); GLUCOSE 111 mg/dL (70-104); TCO2 25 mmol/L (25-35); TOTAL PROTEIN 5.9 g/dL (6.3-8.3)
[2019-09-09 07:11] LABS: ALBUMIN 3.2 g/dL (3.5-5.0); ALKALINE PHOSPHATASE 129 U/L (32-104); CHLORIDE 104 mmol/L (98-107); CREATININE 0.4 mg/dL (0.5-0.9); ESTIMATED GFR > 60; GOT 8 U/L (10-30); GPT 14 U/L (10-36); POTASSIUM 3.6 mmol/L (3.5-5.1); SODIUM 140 mmol/L (136-145)
[2019-09-09 07:12] LABS: AGAP 11; ALB/GLOB RATIO 1.2; COSMO 278
[2019-09-09] MEDS: PERIDEX MT SCH ×2 (09:37→20:05)
[2019-09-09] MEDS: LOVENOX SUBQ SCH (09:37)
[2019-09-09] MEDS: CLARITIN PO SCH (09:37)
[2019-09-09] MEDS: COREG PO SCH ×2 (09:37→20:05)
[2019-09-09] MEDS: NORVASC PO SCH ×2 (09:38→20:05)
[2019-09-09] MEDS: PRILOSEC PO SCH ×2 (09:38→20:05)
[2019-09-09] MEDS: TYLENOL PO PRN (09:38)
[2019-09-09] MEDS: ZOFRAN IV PRN ×2 (12:59→17:02)
--- NOTE | 2019-09-09 16:26 | PROGRESS NOTE ---
DATE: 09/09/2019 SUBJECTIVE: Ms Ruma Osullivan is a 39-year-old, overweight, white female, who has recurrent perirectal abscess. I have treated her in December for an anal fistula and a seton was in place. I took her to surgery yesterday; I removed the seton. I had to make 4 separate radial incisions around her anus to drain infection, both involving the left and right perirectal areas. I removed the packing this evening. Her heart rate is 80, blood pressure 130/70, O2 saturation 100%. She is afebrile. She is on IV Zosyn and vancomycin. Her white blood cell count is improving daily. She still has significant perianal pain and drainage. She did have a bowel movement today. She is on a regular diet. cc: Silva Cotto MD
[2019-09-10] MEDS: TYLENOL PO PRN (00:44)
[2019-09-10] MEDS: NS 1,000 ML IV SCH ×3 (01:11→15:09)
[2019-09-10] MEDS: VANCOMYCIN 1,750 MG in NS 250 ML IV SCH (02:35)
[2019-09-10] MEDS: ZOSYN 3.375 GM in NS 50 ML IV SCH ×4 (04:32→20:34)
[2019-09-10 06:08] LABS: BASO# 0.02 X1000 (0.0-0.2); BASO% 0.2 % (0.0-0.8); EOS# 0.08 X1000 (0.0-0.7); EOS% 0.9 % (0.0-10.0); HEMATOCRIT 32.4 % (37.0-47.0); HEMOGLOBIN 9.8 g/dL (12.0-16.0); LYMPH# 1.92 X1000 (1.2-3.4); LYMPH% 20.9 % (20.5-51.1); MCH 25.8 PG (27-31); MCHC 30.2 g/dL (33-37); MCV 85.3 FL (81-99); MONO# 1.11 X1000 (0.11-0.59); MONO% 12.1 % (1.7-9.3); MPV 10.1 FL (7.4-10.4); NEUT# 6.06 X1000 (1.4-6.5); NEUT% 65.9 % (42.2-75.2); PLT 339 X1000 (130-400); RDW 14.7 % (11.5-14.5); WBC 9.19 X1000 (4.8-10.8)
[2019-09-10 06:22] LABS: ALB/GLOB RATIO 0.9; ALBUMIN 2.9 g/dL (3.5-5.0); CALCIUM 8.4 mg/dL (8.8-10.2); CREATININE 1.2 mg/dL (0.5-0.9); TOTAL BILIRUBIN 0.33 mg/dL (0.20-1.00); TOTAL PROTEIN 6.1 g/dL (6.3-8.3)
[2019-09-10] MEDS: CLARITIN PO SCH (08:55)
[2019-09-10] MEDS: COREG PO SCH ×2 (08:55→20:33)
[2019-09-10] MEDS: ZOFRAN IV PRN (08:55)
[2019-09-10] MEDS: LOVENOX SUBQ SCH (08:55)
[2019-09-10] MEDS: PRILOSEC PO SCH ×2 (08:55→20:33)
[2019-09-10] MEDS: NORVASC PO SCH ×2 (08:55→20:33)
[2019-09-10] MEDS: PERIDEX MT SCH ×2 (08:56→20:33)
--- NOTE | 2019-09-10 09:48 | PROGRESS NOTE ---
DATE: 09/10/2019 SUBJECTIVE: Ms Ruma Osullivan is a 39-year-old, white female, who has recurrent perirectal abscess. She underwent incision and drainage 2 days ago. She has been hospitalized postoperatively and has remained on IV antibiotics with wound care. We did remove the packing yesterday. Her white blood cell count has come down nicely from 18 and now it is 9 over the last several days. Her hematocrit is 32%. Electrolytes: BUN is 8, creatinine is 1.2. She is still having pain requiring p.o. pain medicine. She is still leaking from her open wounds. Her heart rate is 85. Blood pressure 116/74, O2 saturation 95 percent. She has a low-grade temperature of 99 degrees. She remains on IV Zosyn and vancomycin. We are trying to keep her perirectal wounds clean with irrigation and wipes. PLAN: We will continue IV antibiotics and wound care. cc: Silva Cotto MD
--- NOTE | 2019-09-10 11:01 | PROGRESS NOTE ---
DATE: 09/10/2019 SUBJECTIVE: Ms Osullivan says she had a pretty good night. She is going to wait and see how she did today and discuss with Dr. Cotto when to go home. OBJECTIVE: Vital signs: Temperature 99.3 degrees, pulse 85, respirations 18, blood pressure 116/75. HEENT: Pupils are equal and round. Lungs: Clear in all lung oliva. Cardiovascular: Regular rhythm and rate without murmur or S3. Abdomen: Soft. Skin: Warm and dry. ASSESSMENT AND PLAN: 1. Recurrent perirectal abscess. Underwent incision and drainage 2 days ago. Continue IV antibiotics and wound care. They did remove the packing yesterday. White cell count has come down. Hematocrit stable at 32. Continue present measures. 2. Blood pressure looks good. 3. Continue vancomycin and Zosyn. LABORATORY DATA: From this morning, white count 9190, hematocrit 32, platelet count 339,000. Sodium 143, potassium 3.0, chloride 108, BUN 8, creatinine 1.2. cc: Luis Singh MD
[2019-09-10] MEDS ORDERED: VANCOMYCIN 1,750 MG in NS 250 ML IV SCH (21:00)
[2019-09-11] MEDS: ZOSYN 3.375 GM in NS 50 ML IV SCH ×2 (02:26→09:00)
[2019-09-11] MEDS: NS 1,000 ML IV SCH (03:57)
[2019-09-11 05:56] LABS: BASO# 0.02 X1000 (0.0-0.2); BASO% 0.2 % (0.0-0.8); HEMATOCRIT 32.6 % (37.0-47.0); HEMOGLOBIN 9.8 g/dL (12.0-16.0); IMM GRAN# 0.02 X1000 (0.0-0.04); IMM GRAN% 0.2 % (0.0-0.5); LYMPH# 1.82 X1000 (1.2-3.4); LYMPH% 18.1 % (20.5-51.1); MCH 25.5 PG (27-31); MCHC 30.1 g/dL (33-37); MCV 84.9 FL (81-99); MONO# 1.03 X1000 (0.11-0.59); MONO% 10.3 % (1.7-9.3); MPV 9.6 FL (7.4-10.4); NEUT# 7.05 X1000 (1.4-6.5); NEUT% 70.2 % (42.2-75.2); PLT 379 X1000 (130-400); RBC 3.84 XMIL (4.2-5.4); RDW 14.4 % (11.5-14.5); WBC 10.04 X1000 (4.8-10.8)
[2019-09-11 06:39] LABS: ALB/GLOB RATIO 1.1; ALBUMIN 3.4 g/dL (3.5-5.0); CALCIUM 7.9 mg/dL (8.8-10.2); CREATININE 1.3 mg/dL (0.5-0.9); MAGNESIUM 1.8 mg/dL (1.5-2.7); POTASSIUM 2.7 mmol/L (3.5-5.1); TOTAL BILIRUBIN 0.33 mg/dL (0.20-1.00); TOTAL PROTEIN 6.4 g/dL (6.3-8.3)
[2019-09-11 07:43] VITALS: BP 136/80
[2019-09-11] MEDS: NORVASC PO SCH (09:00)
[2019-09-11] MEDS: COREG PO SCH (09:00)
[2019-09-11] MEDS: PERIDEX MT SCH (09:00)
[2019-09-11] MEDS: LOVENOX SUBQ SCH (09:00)
[2019-09-11] MEDS: PRILOSEC PO SCH (09:00)
[2019-09-11] MEDS: CLARITIN PO SCH (09:03)
--- NOTE | 2019-09-11 09:51 | PROGRESS NOTE ---
DATE: 09/11/2019 SUBJECTIVE: Ms. sOullivan is feeling much better. She is thinking about going home today, so will check and see how we are doing this afternoon. OBJECTIVE: Vital Signs: Temp 98.4 degrees, pulse 86, respirations 18, blood pressure 136/80. HEENT: Pupils are equal and round. Lungs: Clear in all lung oliva. Cardiovascular: Regular rhythm and rate without murmur or S3. ASSESSMENT AND PLAN: 1. Recurrent perirectal abscess. Underwent incision and drainage 3 days ago. Continue intravenous antibiotics and wound care. She is doing much better. Would like to go home. 2. Blood pressure looks good. 3. Currently on vancomycin and Zosyn. She is not allergic to any antibiotics, I do not believe. Cultures grew out Escherichia coli and Proteus mirabilis from the wound, and they both appear to be sensitive to cefazolin, so probably could put her on Keflex just 500 mg three times daily for another 7 days if she wants to go home. cc: Luis Singh MD
--- NOTE | 2019-09-11 10:06 | DISCHARGE SUMMARY ---
ADMISSION DATE: 09/07/2019 DISCHARGE DATE: 09/11/2019 ADMITTING DIAGNOSIS: Recurrent perirectal abscess. DISCHARGE DIAGNOSIS: Recurrent perirectal abscess. PRINCIPAL PROCEDURE: Incision and drainage of left and right-sided perirectal abscess on 09/08/2019. DISCHARGE DIET: Regular. DISCHARGE DISPOSITION: She will be seen in our office in a week. DISCHARGE DISABILITY: Full. DISCHARGE MEDICATIONS: She is to return to her home medications. HOSPITAL COURSE: Ms. Ruma Osullivan is a 39-year-old, overweight, white female, who in December of this year, I performed an anal fistulotomy with placement of seton because of a perirectal abscess. We have kept the seton in place, and she has done well until she presented to the emergency department on 09/07/2019 with recurrent perirectal abscess and pain. CT scan was performed and showed purulence both on the left and right side of her anus, and she was taken to the operating room, where she underwent four separate radial incisions around her anus to drain this abscess. The seton was removed. She was hospitalized with packing after surgery on the [address] [place] [id number] [place]. On postop day 1, we removed the packing. She still had a lot of drainage and pain, so she was hospitalized for one more day. She continued on IV antibiotics, and on postoperative day 2, it was felt safe to discharge her to her home under the care of her . We discussed wound care with her. She is to return to her home medicine. Will stop the antibiotics at this time, and I will follow her in our outpatient offices on a weekly basis. cc: Silva Cotto MD
== END 2019-09-11 11:22 | disposition home or self-care (01) | DRG 345 ==
LOC: ED 10:52 → 4N 10:53
PROVIDERS: ATTEND Emergency Medicine